=== PATIENT | female | born 1975 | race Caucasian/White ===

== ENCOUNTER 2021-05-02 10:21 | Outpatient (CLI) | payer OTHER, SELFPAY ==
--- NOTE | 2021-05-02 10:29 | MM_ITS ---
WS: [id number] BILATERAL DIGITAL SCREENING MAMMOGRAPHY WITH CAD CLINICAL INFORMATION: SCREENING HISTORY: Screening mammogram. No current complaints. COMPARISON: None. TECHNIQUE: Bilateral CC and MLO views. FINDINGS: Scattered fibroglandular densities bilaterally. Dense slightly spiculated asymmetry deep to the left areola measuring 2.2 CCM. Recommend further evaluation with left diagnostic mammography and ultrasoun d. Right breast is unremarkable. A few incidental punctate calcifications. MM/[place] [id number] IMPRESSION: BI-RADS: 0-Incomplete: Need additional imaging evaluation FOLLOW UP: Need Additional Imaging RECOMMEND LEFT BREAST DIAGNOSTIC MAMMOGRAPHY AND ULTRASOUND.
== END 2021-05-02 10:22 | disposition home or self-care (01) ==
LOC: RADSHAW 10:26
PROVIDERS: PCP Clinical Nurse Specialist Adult Health; Visit Provider Clinical Nurse Specialist Adult Health
DX: Z12.31 Encounter for screening mammogram for malignant neoplasm of breast (principal)
CPT/HCPCS: 77067

== ENCOUNTER 2021-06-21 08:46 | Outpatient (CLI) | payer OTHER, SELFPAY ==
--- NOTE | 2021-06-21 08:50 | US_ITS ---
WS: [id number] LEFT DIGITAL MAMMOGRAPHY WITH CAD CLINICAL INFORMATION: ABNORMAL MAMMOGRAM LT BREAST COMPARISON: May 02, 2021 TECHNIQUE: 3 views of the left breast were obtained. FINDINGS: Scattered fibroglandular densities of the left breast. Slightly spiculated asymmetry to the left areo la is stable in appearance and partially compresses out on the spot compression views. Ultrasound is pending. ULTRASOUND BREAST LEFT TECHNIQUE: Ultrasound left breast focused area of concern. CLINICAL INFORMATION: ABNORMAL MAMMOGRAM LT BREAST COMPARISON: None. FINDINGS: Ultrasound left breast at the areola. Underlying dense parenchymal tissue. No suspicious underlying a bnormalities. No lesions to target for biopsy. Incidental ductal ectasia right subareolar region seen in the right breast comparison. US/US breast LT limited* [id number] IMPRESSION: BI-RADS: 2-Benign FOLLOW UP: 1 Year Follow-up Recommend return to annual screening mammography.
== END 2021-06-21 08:47 | disposition home or self-care (01) ==
LOC: RADSHAW 08:48
PROVIDERS: PCP Clinical Nurse Specialist Adult Health; Visit Provider Clinical Nurse Specialist Adult Health
DX: R92.8 Other abnormal and inconclusive findings on diagnostic imaging of breast (principal)
CPT/HCPCS: 76642; 77065

== ENCOUNTER 2023-02-17 18:20 | Emergency (ER) | payer OTHER, SELFPAY ==
[2023-02-17 18:35] VITALS: BP 122/86; PULSE 90; RESP 16; TEMP 37.3; O2SAT 96; BMI 33.9
--- NOTE | 2023-02-17 18:45 | ED_ITS ---
HPI - General Adult General: Chief complaint: Dental/Oral Stated complaint: swollen lymph nodes in neck Time Seen by Provider: 02/17/23 18:38 History of Present Illness: 47-year-old female comes in today with some significant swelling to the submandibular area of the neck. Patient reports it started on the right side and now seems to be extending into the left side. Patient appears alert and nontoxic. Patient does have very poor dental health. Patient had talked to someone on the phone and they thought it might be mono when it started about 2 weeks ago but it has not improved and now has progressed. Patient reports no significant difficulty swallowing but does feel a lump in her throat. Patient is managing secretions well. Review of Systems General: Reports: 10 or more systems reviewed and unremarkable except in HPI and below Const: Denies: fever(s) Eyes: Denies: change in vision ENMT: Reports: other (Enlarged lymph nodes or glands to the neck) Physical Exam Const: COMMON NORMALS: alert HENMT: COMMON NORMALS: normocephalic, TM's normal bilaterally and Normal nasal mucous membranes and turbinates present HEAD & SCALP: normocephalic NOSE: Normal nasal mucous membranes and turbinates present TYMPANIC MEMBRANE: TM's normal bilaterally MOUTH: Normal oral and palatal mucosa present TEETH & GINGIVA: Yes poor dentition (Decayed teeth to the gumline) THROAT: posterior oropharynx normal OTHER: Putrid breath Eye: GENERAL EYE: appearance normal, both eyes and all related structures Neck/C-Spine: COMMON NORMALS: full ROM and no meningeal signs OTHER: Enlarged lymph node or salivary gland to the right neck. Lymph: LYMPHATIC: lymphadenopathy (Right and left neck greater on the right) Resp: COMMON NORMALS: normal respiratory effort and clear to auscultation bilaterally AUSCULTATION: clear to auscultation bilaterally Cardio: COMMON NORMALS: regular rate and regular rhythm RATE: regular rate RHYTHM: regular rhythm GI: COMMON NORMALS: Soft to palpation and non-tender PALPATION: Yes Soft to palpation Extremity: COMMON NORMALS: no pedal edema Neuro: SENSORIUM/ORIENTATION: Yes alert MENINGEAL SIGNS: Yes no meningeal signs Skin: COMMON NORMALS: turgor normal GENERAL SKIN EXAM: turgor normal Course Vital Signs: Vital signs: Vital Signs Temperature 99.1 F 02/17/23 18:35 Pulse Rate 90 02/17/23 18:35 Respiratory Rate 16 02/17/23 18:35 Blood Pressure 122/86 02/17/23 18:35 Pulse Oximetry 96 02/17/23 18:35 Oxygen Delivery Me thod Room Air 02/17/23 18:35 MDM - General Adult Medical Decision Making Patient comes in today due to increased swelling and lymphadenopathy to the neck. Patient reports for the last 2 weeks she has noticed some increasing sw elling in the lymph nodes of her neck had first contacted her primary care by phone and they thought that she might have mono so they did not recommend evaluation at that time. Patient comes in today due to persistent swelling and worsening without signs of dental pain or other abnormalities. Patient appears nontoxic. Patient appears in no pain. Patient does have very poor dentition with multiple dental caries and decay to the gumline. Palpation of the right submandibular lymph nodes notes an enlarged significant mass to the right area and a lesser mass to the left area. Suspect these are either salivary glands or lymphadenopathy. No swelling is noted to the sub-lingual area. Posterior pharynx is unremarkable. Differential diagnosis includes but not limited to lymphadenitis, sialoadenitis, lymphoma, abscess. CT of the soft tissues of the neck noted significant enlargement of the lymph nodes with the right being worse than the left. Patient also had multiple dental caries with erosion of the jawline suggesting some osteomyelitis. Patient also have some small striping in the tonsillar area that may suggest a peritonsillar abscess. Patient is stable and is no distress. I reviewed the patient with Dr. Roberts who agreed with plan to discharge home on clindamycin and have patient follow-up with ENT for further evaluation and treatment. Discussed this with patient who is agreeable to plan and need for follow-up. Lab Data 02/17/23 19:14 02/17/23 19:[address] 02/17/23 18:50 IMPRESSION: 1. Enlarged enhancing tiger stripe appearance of the bilateral tonsils compatible with nonsuppurative tonsillitis with concern for developing small bilateral peritonsillar abscesses. 2. Extensive bulky adenopathy in the neck bilaterally with central fluid collections within the enlarged lymph nodes concerning for infected/abscess lymph nodes with the largest adjacent to the angle right mandible. 3. There are dental caries involving essentially all of the remaining teeth in the mandible and maxilla with multiple areas of periapical lucency and bony destruction compatible with osteomyelitis in the maxilla and mandible. This extensive osteomyelitis and bony destruction is greater in the right posterior maxilla and mandible. 4. Extensive soft tissue/periosteal thickening or phlegmon is noted along the bilateral mandible and maxilla compatible with infection and reactive changes to osteomyelitis with concern for subperiosteal abscess measuring 6 x 8 x 9 mm adjacent to the posterior-most molar right mandible best seen on series 11, image 35. Laboratory Results WBC 11.5 10^3/uL (4.0-10.0) H 02/17/23 19:14 RBC 4.17 10^6/uL (4.1-5.3) 02/17/23 19:14 Hgb 13.2 g/dL (11.5-15.3) 02/17/23 19:14 Hct 39.3 % (37.0-47.0) 02/17/23 19:14 MCV 94.2 fl (81-99) 02/17/23 19:14 MCH 31.7 pg (28.0-34.0) 02/17/23 19:14 MCHC 33.6 g/dL (30.0-36.0) 02/17/23 19:14 RDW 12.6 % (12.1-15.1) 02/17/23 19:14 Plt Count 385 10^3/cmm (130-400) 02/17/23 19:14 MPV 9.1 fL (7.4-10.4) 02/17/23 19:14 Neut % (Auto) 60.8 % 02/17/23 19:14 Lymph % (Auto) 31.6 % 02/17/23 19:14 [place] % (Auto) 5.7 % 02/17/23 19:14 Eos % (Auto) 1.1 % 02/17/23 19:14 Baso % (Auto) 0.5 % 02/17/23 19:14 Neut # (Auto) 6.98 10^3/uL (1.8-7.7) 02/17/23 19:14 Lymph # (Auto) 3.6 10^3/uL (0.8-4.8) 02/17/23 19:14 [place] # (Auto) 0.7 10^3/uL (0.2-0.9) 02/17/23 19:14 Eos # (Auto) 0.1 10^3/uL (0.0-0.8) 02/17/23 19:14 Baso # (Auto) 0.1 10^3/uL (0.0-0.1) 02/17/23 19:14 Nucleated RBC % (auto) 0 % 02/17/23 19:14 Nucleated RBCs # 0.0 /100WBC 02/17/23 19:14 Sodium 140 mmol/L (136-145) 02/17/23 19:14 Potassium 3.4 mmol/L (3.5-5.1) L 02/17/23 19:14 Chloride 100 mmol/L (98-107) 02/17/23 19:14 Carbon Dioxide 29 mmol/L (22-29) 02/17/23 19:14 Anion Gap 14.4 (5-19) 02/17/23 19:14 BUN 8 mg/dL (6-20) 02/17/23 19:14 Creatinine 0.6 mg/dL (0.5-0.9) 02/17/23 19:14 GFR Calculation 108.1 mL/min (90-130) 02/17/23 19:14 Glucose 101 mg/dL (65-115) 02/17/23 19:14 Calculated Osmolality 288 mOsm/kg (285-295) 02/17/23 19:14 Calcium 9.0 mg/dL (8.5-10.5) 02/17/23 19:14 Total Bilirubin 0.4 mg/dL (0.15-1.2) 02/17/23 19:14 AST 29 U/L (0-32) 02/17/23 19:14 ALT 38 U/L (0-33) H 02/17/23 19:14 Alkaline Phosphatase 232 U/L (35-105) H 02/17/23 19:14 Total Protein 7.7 g/dL (6.6-8.7) 02/17/23 19:14 Albumin 3.5 g/dL (3.5-5.2) 02/17/23 19:14 Globulin 4.2 g/dL (1.3-4.6) 02/17/23 19:14 HCG, Qual Negative (Negative) 02/17/23 19:14 Group A Strep Rapid Negative (Negative) 02/17/23 18:50 Discharge Plan Discharge Patient Disposition: Home Clinical Impression: Dental caries, Osteomyelitis of jaw Condition: Stable Prescriptions: New clindamycin HCl 300 mg capsule 600 mg PO TID 7 Days Qty: 42 0RF Discharge Orders: Discharge ED (Routine); Ordered 02/17/23 Ordered By: Yosvany Urban Discharge Diet: Usual diet Discharge Activity: Increase activity as tolerated Patient Instructions: Dental Abscess (ED) Activity Restrictions/Additional Instructions: Take antibiotic as directed. Good oral care. Follow-up with research instructor for further evaluation and treatment. Return to ER for difficulty swallowing, inability to maintain secretions, high fever greater than 100.4, shortness of breath. Coding Level of Care Code ED [employer] Trainer for Dwain Rosales
--- NOTE | 2023-02-17 18:50 | CTR_ITS ---
PROCEDURE INFORMATION: Exam: CT Neck With Contrast Exam date and time: 02/17/2023 7:21 PM Age: 47 years old Clinical indication: Dysphagia / difficulty swallowing and mass, lump, or swelling in neck; Right; Patient HX: RT submandibular swelling with dysphagia and fever. ; Additional info: Mass in neck right side TECHNIQUE: Imaging protocol: Computed tomography of the neck with contrast. Radiation optimization: All CT scans at this facility use at least one of these dose optimization techniques: automated exposure control; mA and/or kV adjustment per patient size (includes targeted exams where dose is matched to clinical indication); or iterative reconstruction. Contrast material: OMNI 350; Contrast volume: 100 ml; Contrast route: INTRAVENOUS (IV); REPORTING DATA: Count of CT and Cardiac NM exams in prior 12 months: This patient has received 0 known CTs and 0 known cardiac nuclear medicine studies in the 12 months prior to the current study. COMPARISON: No relevant prior studies available. RADIATION DOSE METRICS: Total DLP (mGy-cm): 271.82 FINDINGS: Paranasal sinuses: There is a mucous retention cyst right maxillary sinus. Dental: There are dental caries involving essentially all of the remaining teeth in the mandible and maxilla with multiple areas of periapical lucency and bony destruction of osteomyelitis in the maxilla and mandible. Pharynx: Bilateral tonsils are enlarged and have a striated/tiger stripe appearance that is compatible with nonsuppurative tonsillitis. However, is marked thick enhancement surrounding multiple well-defined hypodense small fluid collections within the bilateral tonsils concerning for developing peritonsillar abscess is bilaterally measuring 4 x 8 mm. This is best seen on the left series 11, image 51 and on the right series 11, image 49. Larynx: Unremarkable. Epiglottis is normal. Prevertebral and retropharyngeal spaces: Unremarkable. Salivary glands: Normal. Glands are normal in size. Thyroid: Normal. No enlarged or calcified nodules. Lymph nodes: There is extensive bilateral adenopathy in the neck. Multiple enlarged lymph nodes have central hypodensity concerning for infected/abscess lymph nodes including the largest in the right submandibular region measuring 2.7 x 2.6 x 3.5 cm. Additional abscess type lymph nodes are noted bilaterally in the neck as seen on series 6, image 47 through 61. Trachea: Visualized trachea is unremarkable. Lungs: Unremarkable as visualized. Bones/joints: No definite abscess adjacent to the left mandible or maxilla. Vasculature: There is good vascular enhancement in the neck bilaterally without occlusion or thrombosis. Soft tissues: Extensive soft tissue/periosteal thickening is noted along the bilateral mandible and maxilla compatible with infection with concern for subperiosteal abscess measuring 6 x 8 x 9 mm adjacent to the posterior-most molar right mandible best seen on series 11, image 35. CT/CT neck w con* [id number] IMPRESSION: 1. Enlarged enhancing tiger stripe appearance of the bilateral tonsils compatible with nonsuppurative tonsillitis with concern for developing small bilateral peritonsillar abscesses. 2. Extensive bulky adenopathy in the neck bilaterally with central fluid collections within the enlarged lymph nodes concerning for infected/abscess lymph nodes with the largest adjacent to the angle right mandible. 3. There are dental caries involving essentially all of the remaining teeth in the mandible and maxilla with multiple areas of periapical lucency and bony destruction compatible with osteomyelitis in the maxilla and mandible. This extensive osteomyelitis and bony destruction is greater in the right posterior maxilla and mandible. 4. Extensive soft tissue/periosteal thickening or phlegmon is noted along the bilateral mandible and maxilla compatible with infection and reactive changes to osteomyelitis with concern for subperiosteal abscess measuring 6 x 8 x 9 mm adjacent to the posterior-most molar right mandible best seen on series 11, image 35.
[2023-02-17 19:20] LABS: Rapid Strep A Test Negative (Negative)
[2023-02-17] MEDS: iohexol 350 mg/mL 500 mL Btl (per mL) IV (19:32)
[2023-02-17 19:37] LABS: Alanine Aminotransferase 38 U/L (0-33); Albumin Level 3.5 g/dL (3.5-5.2); Alkaline Phosphatase 232 U/L (35-105); Anion Gap 14.4 (5-19); Aspartate Amino Transferase 29 U/L (0-32); Blood Urea Nitrogen 8 mg/dL (6-20); Carbon Dioxide 29 mmol/L (22-29); Chloride 100 mmol/L (98-107); Globulin 4.2 g/dL (1.3-4.6); Glomerular Filtration Rate 108.1 mL/min (90-130); Glucose 101 mg/dL (65-115); HCG, Serum Qual Negative (Negative); Osmolality Calculated 288 mOsm/kg (285-295); Potassium 3.4 mmol/L (3.5-5.1); Sodium 140 mmol/L (136-145); Total Bilirubin 0.4 mg/dL (0.15-1.2); Total Protein 7.7 g/dL (6.6-8.7)
[2023-02-17 19:38] LABS: Basophils # 0.1 10^3/uL (0.0-0.1); Basophils % 0.5 %; Eosinophils # 0.1 10^3/uL (0.0-0.8); Eosinophils % 1.1 %; Hematocrit 39.3 % (37.0-47.0); Hemoglobin 13.2 g/dL (11.5-15.3); Lymphocytes # 3.6 10^3/uL (0.8-4.8); Lymphocytes % 31.6 %; Mean Corpuscular HGB Conc 33.6 g/dL (30.0-36.0); Mean Corpuscular Hemoglobin 31.7 pg (28.0-34.0); Mean Corpuscular Volume 94.2 fl (81-99); Mean Platelet Volume 9.1 fL (7.4-10.4); Monocytes # 0.7 10^3/uL (0.2-0.9); Monocytes % 5.7 %; Neutrophils # 6.98 10^3/uL (1.8-7.7); Neutrophils % 60.8 %; Nucleated Red Blood Cells % 0 %; Platelet Count 385 10^3/cmm (130-400); Red Blood Count 4.17 10^6/uL (4.1-5.3); Red Cell Distribution Width 12.6 % (12.1-15.1); White Blood Count 11.5 10^3/uL (4.0-10.0)
[2023-02-17] MEDS: clindamycin 900 MG/50 ML PREMIX 100 MG IV (20:35)
[2023-02-17 20:48] VITALS: BP 110/74; TEMP 37.2; O2SAT 97
--- NOTE | 2023-02-18 10:13 | PC.SOCIAL ---
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 warehouse manager unable to speak with patient at this time. Original Note: ENT Referral Referral to ENT at this time. Clinic to contact patient with appt date/time.
== END 2023-02-17 21:24 | disposition home or self-care (01) ==
PROVIDERS: Emergency Provider Nurse Practitioner Family
DX: K02.9 Dental caries, unspecified (principal); M27.2 Inflammatory conditions of jaws
CPT/HCPCS: 70491; 80053; 84703; 85025; 87081; 87880; 96374; 99285; J3490; Q9967

== ENCOUNTER 2023-06-30 10:42 | Emergency (ER) | payer OTHER, SELFPAY ==
[2023-06-30] VITALS (38 sets, daily range): BP systolic 135–156; BP diastolic 75–92; PULSE 44–67; RESP 7–17; TEMP 37.3; O2SAT 90–99; BMI 30.7
--- NOTE | 2023-06-30 10:53 | CTR_ITS ---
PROCEDURE INFORMATION: Exam: CT Abdomen And Pelvis With Contrast Exam date and time: 06/30/2023 12:03 PM Age: 47 years old Clinical indication: Abdominal pain; Epigastric; Additional info: Abd pain TECHNIQUE: Imaging protocol: Computed tomography of the abdomen and pelvis with contrast. Axial, coronal and sagittal reformatted images were created and reviewed. Radiation optimization: All CT scans at this facility use at least one of these dose optimization techniques: automated exposure control; mA and/or kV adjustment per patient size (includes targeted exams where dose is matched to clinical indication); or iterative reconstruction. Contrast material: OMNI 350; Contrast volume: 100 ml; Contrast route: INTRAVENOUS (IV); REPORTING DATA: Count of CT and Cardiac NM exams in prior 12 months: This patient has received [address] and 0 known cardiac nuclear medicine studies in the 12 months prior to the current study. COMPARISON: No relevant prior studies available. RADIATION DOSE METRICS: Total DLP (mGy-cm): 803.64 FINDINGS: Liver: Mild hepatic steatosis. Gallbladder and bile ducts: Mild gallbladder distention with associated gallbladder wall thickening. No radiodense gallstones. Pancreas: Unremarkable. Spleen: Coarse calcified splenic granuloma. Adrenal glands: Normal. No mass. Kidneys and ureters: No mass. No radiodense calculi. No hydronephrosis. Stomach and bowel: No bowel wall thickening. No obstruction. No pneumatosis. Appendix: Normal. Intraperitoneal space: No free fluid. No organized fluid collection. No free air. Vasculature: Unremarkable. No aneurysm. Lymph nodes: No pathologically enlarged lymph nodes. Urinary bladder: Unremarkable as visualized. Reproductive: 3.3 x 3.3 cm right adnexal cystic lesion, likely a follicular cyst. Bones/joints: No acute osseous abnormality. Mild degenerative changes. Soft tissues: Small, fat containing umbilical hernia. CT/CT abdomen pelvis w con* [id number] IMPRESSION: 1. Mild gallbladder distention with associated gallbladder wall thickening. No radiodense gallstones. If clinically indicated, ultrasound or HIDA scan would provide a more sensitive evaluation for acute gallbladder pathology. 2. Additional findings, as above.
--- NOTE | 2023-06-30 10:56 | W.ED.ABDPA2 ---
HPI - Abdominal Pain General: Chief Complaint: Abdominal Pain Stated Complaint: abd pain Time Seen by Provider: 06/30/23 10:53 History of Present Illness: 47-year-old female presents emergency room with right upper quadrant epigastric and left upper quadrant pain for the past 4 days. She reveals increased pain after eating and described pain as sharp sensation with severity of 7 out of 10. She revealed some nausea and vomiting but [place] any diarrhea, bloody stool or dark stool. No fever, chills, dysuria, hematuria or urine frequency. Associated Symptoms: Reports nausea and vomiting; Denies coffee ground emesis, diarrhea, heartburn and hematemesis Review of Systems General: Reports: 10 or more systems reviewed and unremarkable except in HPI and below GI: Reports: abdominal pain, nausea and vomiting; Denies: hematemesis, coffee ground emesis, dysphagia, heartburn, early satiety or diarrhea Physical Exam Const: COMMON NORMALS: no acute distress Chest: COMMONS NORMALS: normal inspection of the chest, normal palpation of entire chest wall, normal inspection of the breasts and normal palpation of the breasts Breast/axilla inspection: Yes normal inspection of the breasts BREAST/AXILLA PALPATION: Yes normal palpation of the breasts Resp: COMMON NORMALS: normal respiratory effort, No retractions, No use of accessory muscles, clear to auscultation bilaterally and percussion normal AUSCULTATION: clear to auscultation bilaterally PERCUSSION: percussion normal GI: COMMON NORMALS: Soft to palpation; negative for No hepatosplenomegaly present INSPECTION: Yes normal to inspection AUSCULTATION: Yes normoactive bowel sounds PALPATION: Yes Soft to palpation, Yes Tenderness to palpation present (GI) Details: LUQ, RUQ and other (epigastric ), No Rigid due to palpation, No No hepatosplenomegaly present, No Splenomegaly present, No Hernia present, No Palpable mass present, No Pulsatile mass present and No Ascites present PERCUSSION: normal to percussion : EXTERNAL FEMALE EXAM: No Hernia present Extremity: COMMON NORMALS: normal to inspection, full ROM, capillary refill normal, no joint enlargement, no clubbing, cyanosis or edema, no calf tenderness and no pedal edema Skin: COMMON NORMALS: no rashes or lesions noted, no wounds, turgor normal, no jaundice, no petechiae and no mottling GENERAL SKIN EXAM: no rashes or lesions noted and turgor normal Course Consultations: Consultation #1: Consulted Dr. Stiles and the general surgeon on-call. He recommended getting ultrasound. Consultation #2: I reviewed the ultrasound report and discussed ultrasound Pap with Dr. Stiles. Recommended outpatient follow-up. Also recommended Augmentin twice daily for 10 days. Vital Signs: Vital signs: Vital Signs Temperature 99.2 F 06/30/23 10:46 Pulse Rate 57 L 06/30/23 11:48 Respiratory Rate 10 L 06/30/23 11:48 Blood Pressure 156/88 06/30/23 11:48 Pulse Oximetry 96 06/30/23 11:48 Oxygen Delivery Me thod Room Air 06/30/23 10:46 MDM - Abdominal Pain Medical Decision Making Patient made comfortable emergency room. Patient extensive work-up to include CBC, CMP, lipase and a UA. Patient had CT scan and ultrasound done. She will be discharged home with pain medication and antibiotics. Patient was given referral to see general surgery in 2 to 3 days. Differential Diagnosis Likely abdominal pain, acute appendicitis, calculus of kidney, constipation, diverticulitis, endometriosis, gastroenteritis, pancreatitis and small bowel obstruction Lab Data 06/30/23 11:10 06/30/23 11:10 Labs/Radiology: Radiology Impressions Abdomen/Pelvis CT 06/30/23 10:53 IMPRESSION: 1. Mild gallbladder distention with associated gallbladder wall thickening. No radiodense gallstones. If clinically indicated, ultrasound or HIDA scan would provide a more sensitive evaluation for acute gallbladder pathology. 2. Additional findings, as above. Laboratory Results WBC 8.68 10^3/uL (3.29-11.43) 06/30/23 11:10 RBC 4.22 10^6/uL (3.85-5.65) 06/30/23 11:10 Hgb 13.30 g/dL (11.27-16.99) 06/30/23 11:10 Hct 41.2 % (36-47) 06/30/23 11:10 MCV 97.6 fl (85-98) 06/30/23 11:10 MCH 31.5 pg (27-33) 06/30/23 11:10 MCHC 32.3 g/dL (30-55) 06/30/23 11:10 RDW 12.3 % (12.1-15.1) 06/30/23 11:10 Plt Count 272 10^3/cmm (157-399) 06/30/23 11:10 MPV 9.9 fL (7.4-10.4) 06/30/23 11:10 Neut % (Auto) 47.6 % 06/30/23 11:10 Lymph % (Auto) 42.7 % 06/30/23 11:10 [place] % (Auto) 6.5 % 06/30/23 11:10 Eos % (Auto) 2.5 % 06/30/23 11:10 Baso % (Auto) 0.5 % 06/30/23 11:10 Neut # (Auto) 4.13 10^3/uL (1.8-7.7) 06/30/23 11:10 Lymph # (Auto) 3.7 10^3/uL (0.8-4.8) 06/30/23 11:10 [place] # (Auto) 0.6 10^3/uL (0.2-0.9) 06/30/23 11:10 Eos # (Auto) 0.2 10^3/uL (0.0-0.8) 06/30/23 11:10 Baso # (Auto) 0.0 10^3/uL (0.0-0.1) 06/30/23 11:10 Nucleated RBC % (auto) 0 % 06/30/23 11:10 Nucleated RBCs # 0.0 /100WBC 06/30/23 11:10 Sodium 137 mmol/L (136-145) 06/30/23 11:10 Potassium 3.4 mmol/L (3.5-5.1) L 06/30/23 11:10 Chloride 99 mmol/L (98-107) 06/30/23 11:10 Carbon Dioxide 26 mmol/L (22-29) 06/30/23 11:10 Anion Gap 15.4 (5-19) 06/30/23 11:10 BUN 9 mg/dL (6-20) 06/30/23 11:10 Creatinine 0.6 mg/dL (0.5-0.9) 06/30/23 11:10 GFR Calculation 108.1 mL/min (90-130) 06/30/23 11:10 Glucose 98 mg/dL (65-115) 06/30/23 11:10 Calculated Osmolality 283 mOsm/kg (285-295) L 06/30/23 11:10 Calcium 9.3 mg/dL (8.5-10.5) 06/30/23 11:10 Total Bilirubin 0.4 mg/dL (0.15-1.2) 06/30/23 11:10 AST 23 U/L (0-32) 06/30/23 11:10 ALT 23 U/L (0-33) 06/30/23 11:10 Alkaline Phosphatase 101 U/L (35-105) 06/30/23 11:10 Total Protein 7.7 g/dL (6.6-8.7) 06/30/23 11:10 Albumin 4.0 g/dL (3.5-5.2) 06/30/23 11:10 Globulin 3.7 g/dL (1.3-4.6) 06/30/23 11:10 Lipase 32 U/L (13-60) 06/30/23 11:10 HCG, Qual Negative (Negative) 06/30/23 11:07 Urine Color Yellow (Yellow) 06/30/23 11:07 Urine Appearance Clear (CLEAR) 06/30/23 11:07 Urine pH 6 (5-7) 06/30/23 11:07 Ur Specific [place] 1.015 (1.005-1.030) 06/30/23 11:07 Urine Protein Neg (Negative) 06/30/23 11:07 Urine Glucose (UA) Norm (Normal) 06/30/23 11:07 Urine Ketones Negative (Negative) 06/30/23 11:07 Urine Blood Neg (Negative) 06/30/23 11:07 Urine Nitrate Negative (Negative) 06/30/23 11:07 Urine Bilirubin Neg (Negative) 06/30/23 11:07 Urine Urobilinogen Norm mg/dL (Negative) 06/30/23 11:07 Ur Leukocyte Esterase Negative (Negative) 06/30/23 11:07 XR interpretation done by ED provider, pending radiology final review Discharge Plan Discharge Patient Disposition: Home Clinical Impression: Abdominal pain, Cholecystitis Condition: Stable Prescriptions: New Percocet 5-325 mg tablet 1 tab PO Q8H PRN (Reason: pain) Qty: 10 0RF amoxicillin-pot clavulanate 875-125 mg tablet 1 tab PO Q12H Qty: 10 0RF Discharge Orders: Discharge ED (Routine); Ordered 06/30/23 Ordered By: Mavis Weiner Referrals: Galo Ortez DO [Physician] - 1-3 days Discharge Diet: Low Cholesterol and Low Fat Discharge Activity: Resume usual activity Patient Instructions: Cholecystitis (ED), Abdominal Pain (ED), Opioid Safety, Pain Management Coding Level of Care Code ED Corporate Safety Director for Dwain Rosales
[2023-06-30 11:24] LABS: Basophils % 0.5 %; Eosinophils # 0.2 10^3/uL (0.0-0.8); Eosinophils % 2.5 %; Hematocrit 41.2 % (36-47); Lymphocytes # 3.7 10^3/uL (0.8-4.8); Lymphocytes % 42.7 %; Mean Corpuscular HGB Conc 32.3 g/dL (30-55); Mean Corpuscular Hemoglobin 31.5 pg (27-33); Mean Corpuscular Volume 97.6 fl (85-98); Mean Platelet Volume 9.9 fL (7.4-10.4); Monocytes # 0.6 10^3/uL (0.2-0.9); Monocytes % 6.5 %; Neutrophils # 4.13 10^3/uL (1.8-7.7); Neutrophils % 47.6 %; Nucleated Red Blood Cells % 0 %; Platelet Count 272 10^3/cmm (157-399); Red Blood Count 4.22 10^6/uL (3.85-5.65); Red Cell Distribution Width 12.3 % (12.1-15.1); White Blood Count 8.68 10^3/uL (3.29-11.43)
[2023-06-30 11:26] LABS: Add Urine Microscopic? NO; Charge for UA Resulting for Rev
[2023-06-30 11:28] LABS: Bilirubin Urine Neg (Negative); Blood Urine Neg (Negative); Glucose Urine UA Norm (Normal); Ketones Urine Negative (Negative); Leukocyte Esterase Urine Negative (Negative); Nitrate Urine Negative (Negative); Protein Urine Neg (Negative); Specific Gravity, Urine 1.015 (1.005-1.030); Urine Appearance Clear (CLEAR); Urine Color Yellow (Yellow); Urobilinogen Urine Norm (Negative); pH Urine 6 (5-7)
[2023-06-30 11:29] LABS: HCG Qualitative Urine. Negative (Negative)
[2023-06-30 11:33] LABS: Alanine Aminotransferase 23 U/L (0-33); Alkaline Phosphatase 101 U/L (35-105); Anion Gap 15.4 (5-19); Aspartate Amino Transferase 23 U/L (0-32); Blood Urea Nitrogen 9 mg/dL (6-20); Calcium 9.3 mg/dL (8.5-10.5); Carbon Dioxide 26 mmol/L (22-29); Chloride 99 mmol/L (98-107); Globulin 3.7 g/dL (1.3-4.6); Glomerular Filtration Rate 108.1 mL/min (90-130); Glucose 98 mg/dL (65-115); Lipase 32 U/L (13-60); Osmolality Calculated 283 mOsm/kg (285-295); Potassium 3.4 mmol/L (3.5-5.1); Sodium 137 mmol/L (136-145); Total Bilirubin 0.4 mg/dL (0.15-1.2); Total Protein 7.7 g/dL (6.6-8.7)
[2023-06-30] MEDS: pantoprazole 40 mg SDV IVP (11:37)
[2023-06-30] MEDS: metoclopramide 5 mg/mL SDV 2 mL 10 MG IVP (11:38)
[2023-06-30] MEDS: HYDROmorphone 1 mg/mL INJ 1 mL 0.5 MG IVP (11:41)
[2023-06-30] MEDS: iohexol 350 mg/mL 500 mL Btl (per mL) IV (12:11)
--- NOTE | 2023-06-30 12:45 | USR_ITS ---
PROCEDURE INFORMATION: Exam: US Abdomen, Limited; Right Upper Quadrant Exam date and time: 06/30/2023 1:46 PM Age: 47 years old Clinical indication: Abdominal pain; Epigastric; Additional info: Pain and abnormal gallbladder TECHNIQUE: Imaging protocol: Real time ultrasound of the abdomen with image documentation. Limited exam focused on the right upper quadrant. COMPARISON: CT abdomen pelvis w con* [id number] 06/30/2023 12:03 PM FINDINGS: Liver: Unremarkable. Gallbladder: Mild nonspecific gallbladder wall thickening. No gallstones. No pericholecystic fluid. 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 Biliary ducts: Normal. No stones. No dilation. Pancreas: Unremarkable as visualized. Right kidney: No mass. No definite stones. No hydronephrosis. US/US gall bladder [id number] IMPRESSION: Mild nonspecific gallbladder wall thickening without gallstones. If clinically indicated, HIDA scan would provide a more sensitive evaluation for acute gallbladder pathology.
== END 2023-06-30 14:38 | disposition home or self-care (01) ==
PROVIDERS: Emergency Provider Family Medicine
DX: K81.9 Cholecystitis, unspecified (principal)
CPT/HCPCS: 36415; 74177; 76705; 80053; 81003; 81025; 83690; 85025; 96374; 96375; 99285; C9113; J1170; J2765; Q9967

== ENCOUNTER → 2023-07-02 13:57 | Outpatient (BNVA) | payer OTHER, SELFPAY | PROVIDERS: Visit Provider Surgery | DX: R10.13 Epigastric pain (principal) | CPT/HCPCS: 99204 ==

== ENCOUNTER 2023-07-05 07:38 | Outpatient (CLI) | payer OTHER, SELFPAY ==
--- NOTE | 2023-07-05 08:00 | NM_ITS ---
WS: [id number] NUCLEAR MEDICINE HIDA SCAN CLINICAL INFORMATION: epigastric pain TECHNIQUE: Following intravenous administration of 7.4 mCi of technetium 99m mebrofenin, images of th e abdomen were obtained over the course of 60 minutes. Next, gallbladder ejection fraction was determ ined by obtaining preprandial and one-hour postprandial images of the gallbladder following oral luca stion of Ensure. COMPARISON: Ultrasound 06/30/2023 FINDINGS: Hepatomegaly. Normal hepatic uptake. Normal hepatic excretion. Gallbladder visualized by 90 minutes. No evidence of acute cholecystitis. Normal common bile duct and small bowel activity. No gallbladder emptying at 66 minutes on the ejection fraction imaging. IMPRESSION: 1. No evidence of acute cholecystitis. 2. No gallbladder emptying on the ejection fraction imaging. Findings can be seen with chronic acalc ulous cholecystitis or chronic gallbladder dysfunction. 3. Hepatomegaly.
== END 2023-07-05 07:39 | disposition home or self-care (01) ==
LOC: RAD 07:39
PROVIDERS: PCP Surgery; Visit Provider Surgery
DX: R10.13 Epigastric pain (principal); R16.0 Hepatomegaly, not elsewhere classified
CPT/HCPCS: 78227; A9537

== ENCOUNTER 2023-07-12 20:48 | Inpatient (IN) | payer OTHER, SELFPAY ==
[2023-07-12 20:52] VITALS: BP 154/92; PULSE 61; RESP 18; TEMP 36.4; O2SAT 100; BMI 28.6
--- NOTE | 2023-07-12 21:25 | ED_ITS ---
HPI - Abdominal Pain General: Chief Complaint: Abdominal Pain Stated Complaint: abd pain Time Seen by Provider: 07/12/23 21:25 History of Present Illness: 47-year-old female presents to the emergency department with complaints of right upper quadrant pain. She states she has been seen several times by her primary care provider and also recently by Dr. Ortez she states she is received a HIDA scan as well as an ultrasound and a CT scan and was told by Dr. Ortez's nurse that if her pain worsens to come to the emergency department. Patient now states that her pain is a 9 out of 10 and has been for the previous 12 hours. She states she is unable to do this any longer and is demanding to have Dr. Ortez called. I advised her that we will obtain laboratory evaluation and that I would call Dr. Ortez to let him know that she is here in the emergency department. Associated Symptoms: Reports nausea Review of Systems General: Reports: 10 or more systems reviewed and unremarkable except in HPI and below GI: Reports: abdominal pain and nausea Physical Exam Narrative: EXAM NARRATIVE: Constitutional: the patient appears well nourished and with normal development. Vital signs reviewed as documented. Appears in moderate distress. HENMT: Normocephalic, atraumatic. Extermal ears with normal appearance without drainage. Nose without drainage, normal appearance. Mucus membranes moist. Neck is supple, No jugular venous distension, trachea is midline, no appreciable carotid bruits. No lymphadenopathy. No meningeal signs. Flexion, extension and lateral rotation is without pain. Eyes: Pupils are equal, round, reactive to light and accommodation. No scleral icterus. Extra-ocular movement are intact. Thorax is symmetrical and with equal rise and fall with respirations. Resp: Lungs are clear to auscultation. No wheezes, rales, crackles or ronchi at present. Cardio: Regular rate and rhythm. Positive S1, S2. No appreciable murmurs, rubs or gallops. GI: Abdominal exam reveals normal bowel sounds to all quadrants. No organomegaly. No obvious palpable masses noted. No hepatomegally appreciated. Soft, Tender to palpation To the right upper quadrant. Extremity: Extremities are non-edematous and both femoral and pedal pulses are 2+ and equal bilaterally. Moves all extremities well, sensation in all extremities. Neuro: Alert and oriented x4, person, place, time and situation. Cranial nerves II through XII are grossly intact, there is no focal neurological deficits that I can appreciate at present. Motor strength in the upper and lower extremities are equal and bilateral 5/5. Psych: Cooperative, calm, normal thought process, appropriate judgment. Skin: No lesions, rashes. No gross abnormalities noted. Back: Symmetrical, no obvious deformity, No CVA tenderness Course Vital Signs: Vital signs: Vital Signs Temperature 97.6 F 07/12/23 20:52 Pulse Rate 61 07/12/23 20:52 Respiratory Rate 18 07/12/23 20:52 Blood Pressure 154/92 07/12/23 20:52 Pulse Oximetry 100 07/12/23 20:52 Oxygen Delivery Me thod Room Air 07/12/23 20:52 MDM - Abdominal Pain Medical Decision Making Physical exam completed and documented, I will obtain laboratory evaluation to include a CBC, CMP, lipase, urinalysis, and Ultrasound of the patient's abdomen pelvis to evaluate for possible differential diagnosis of bowel obstruction, incarcerated hernia, abdominal wall strain, abdominal wall hematoma, constipation. I will provide the patient IV access and IV fluid as well as Pain medication and nausea medication.I reviewed the patient's previous HIDA scan from 06/30/[address] Ortez at the patient's request to advise him of the situation here in the emergency department with this patient. Medical Records I reviewed the patient's medical records. Lab Data 07/12/23 22:46 07/12/23 22:46 Labs/Radiology: Radiology Impressions Gallbladder Ultrasound 07/12/23 21:42 IMPRESSION: 1. No acute findings. 2. Mildly increased echogenicity of the liver, most likely fatty infiltration. Laboratory Results WBC 4.50 10^3/uL (3.29-11.43) 07/12/23 22:46 RBC 4.50 10^6/uL (3.85-5.65) 07/12/23 22:46 Hgb 14.20 g/dL (11.27-16.99) 07/12/23 22:46 Hct 42.5 % (36-47) 07/12/23 22:46 MCV 94.4 fl (85-98) 07/12/23 22:46 MCH 31.6 pg (27-33) 07/12/23 22:46 MCHC 33.4 g/dL (30-55) 07/12/23 22:46 RDW 12.1 % (12.1-15.1) 07/12/23 22:46 Plt Count 281 10^3/cmm (157-399) 07/12/23 22:46 MPV 9.7 fL (7.4-10.4) 07/12/23 22:46 Neut % (Auto) 82.8 % 07/12/23 22:46 Lymph % (Auto) 14.4 % 07/12/23 22:46 Arroyo % (Auto) 0.2 % 07/12/23 22:46 Eos % (Auto) 2.2 % 07/12/23 22:46 Baso % (Auto) 0.4 % 07/12/23 22:46 Neut # (Auto) 3.72 10^3/uL (1.8-7.7) 07/12/23 22:46 Lymph # (Auto) 0.7 10^3/uL (0.8-4.8) L 07/12/23 22:46 Arroyo # (Auto) 0.0 10^3/uL (0.2-0.9) L 07/12/23 22:46 Eos # (Auto) 0.1 10^3/uL (0.0-0.8) 07/12/23 22:46 Baso # (Auto) 0.0 10^3/uL (0.0-0.1) 07/12/23 22:46 Nucleated RBC % (auto) 0 % 07/12/23 22:46 Nucleated RBCs # 0.0 /100WBC 07/12/23 22:46 All radiology interpretation(s) finalized by discharge Discharge Plan Discharge Clinical Impression: Abdominal pain Condition: Stable Prescriptions: No Action pantoprazole [Protonix] 40 mg tablet,delayed release (DR/EC) 40 mg PO BID 42 Days Qty: 84 1RF Percocet 5-325 mg tablet 1 tab PO Q8H PRN (Reason: pain) Qty: 10 0RF amoxicillin-pot clavulanate 875-125 mg tablet 1 tab PO Q12H Qty: 10 0RF Referrals: Galo Ortez DO [Primary Care Provider] - Patient Instructions: Abdominal Pain (ED) Coding Level of Care Code ED 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
--- NOTE | 2023-07-12 21:42 | USR_ITS ---
PROCEDURE INFORMATION: Exam: US Abdomen, Limited; Right Upper Quadrant Exam date and time: 07/12/2023 10:00 PM Age: 47 years old Clinical indication: Abdominal pain; Epigastric; Additional info: Ruq abd pain TECHNIQUE: Imaging protocol: Real time ultrasound of the abdomen with image documentation. Limited exam focused on the right upper quadrant. COMPARISON: US gall bladder [id number] 06/30/2023 1:46 PM FINDINGS: Liver: The liver is mildly hyperechoic measuring 15.6 cm. Gallbladder: Prominent fluid-filled gallbladder measuring 13.0 cm in length. No gallbladder wall thickening. No gallstones. Biliary ducts: Normal. No stones. No dilation. Pancreas: Visualized pancreas is unremarkable. Right kidney: Normal. No mass. No hydronephrosis. Intraperitoneal space: No ascites. US/US gall bladder [id number] IMPRESSION: 1. No acute findings. 2. Mildly increased echogenicity of the liver, most likely fatty infiltration.
[2023-07-12] MEDS: ondansetron 2 mg/ML SDV 2 mL 4 MG IVP ×2 (22:47→23:47)
[2023-07-12 22:50] LABS: Basophils % 0.4 %; Eosinophils # 0.1 10^3/uL (0.0-0.8); Eosinophils % 2.2 %; Hematocrit 42.5 % (36-47); Lymphocytes # 0.7 10^3/uL (0.8-4.8); Lymphocytes % 14.4 %; Mean Corpuscular HGB Conc 33.4 g/dL (30-55); Mean Corpuscular Hemoglobin 31.6 pg (27-33); Mean Corpuscular Volume 94.4 fl (85-98); Mean Platelet Volume 9.7 fL (7.4-10.4); Monocytes % 0.2 %; Neutrophils # 3.72 10^3/uL (1.8-7.7); Neutrophils % 82.8 %; Nucleated Red Blood Cells % 0 %; Platelet Count 281 10^3/cmm (157-399); Red Cell Distribution Width 12.1 % (12.1-15.1)
[2023-07-12 22:58] VITALS: BP 125/53; PULSE 76; RESP 14; O2SAT 98
[2023-07-12 23:06] LABS: HCG, Serum Qual Negative (Negative)
[2023-07-12 23:11] VITALS: RESP 18; O2SAT 100
[2023-07-12 23:11] LABS: Albumin Level 4.3 g/dL (3.5-5.2); Alkaline Phosphatase 672 U/L (35-105); Anion Gap 16.3 (5-19); Aspartate Amino Transferase 668 U/L (0-32); Blood Urea Nitrogen 9 mg/dL (6-20); Calcium 9.6 mg/dL (8.5-10.5); Carbon Dioxide 25 mmol/L (22-29); Chloride 99 mmol/L (98-107); Globulin 3.8 g/dL (1.3-4.6); Glomerular Filtration Rate 90.5 mL/min (90-130); Glucose 116 mg/dL (65-115); Lipase 44 U/L (13-60); Osmolality Calculated 284 mOsm/kg (285-295); Potassium 3.3 mmol/L (3.5-5.1); Sodium 137 mmol/L (136-145); Total Bilirubin 2.7 mg/dL (0.15-1.2); Total Protein 8.1 g/dL (6.6-8.7)
[2023-07-12] MEDS: morphine 4 mg/mL SDV 1 mL IVP (23:11)
[2023-07-12 23:23] LABS: Alanine Aminotransferase 764 U/L (0-33)
[2023-07-12 23:40] LABS: Add Urine Microscopic? YES; Bilirubin Urine 2+ (Negative); Blood Urine Neg (Negative); Glucose Urine UA Norm (Normal); Ketones Urine 1+ (Negative); Leukocyte Esterase Urine Trace (Negative); Nitrate Urine Negative (Negative); Protein Urine 1+ (Negative); Urine Appearance Clear (CLEAR); Urine Color Amber (Yellow); Urobilinogen Urine 8 mg/dL (Negative); pH Urine 6 (5-7)
[2023-07-12 23:41] LABS: Add Urine Culture? No; Amorphous Sediment Urine 1+ /hpf; Mucus Urine 4+ /hpf; WBC Urine 0-4 /hpf (0-5)
[2023-07-12 23:44] VITALS: BP 96/49; PULSE 74; RESP 16; O2SAT 99
[2023-07-12] MEDS: sodium chloride 0.9% 1,000 ML 999 ML IV (23:46)
--- NOTE | 2023-07-12 23:52 | P.HP_ITS ---
Providers/Chief Complaint Primary Care Provider: Galo Ortez DO Chief Complaint: abd pain History of Present Illness Dionne Rocha is a 47 year old female seen general surgeon in the past for acalculous cholecystitis, she has been a CT scan abdomen pelvis, HIDA scan and gallbladder ultrasound presenting today with chief complaint of worsening of her symptoms. Patient is stating that he was seen by multiple physicians regarding her ulcero glandular lymphadenopathy, rightSubmandibular lymph node, she was diagnosed with tularemia has seen multiple cycles of antibiotics, patient was diagnosed with leukemia in February, patient has had autoimmune work-up, lymph node biopsy was not done because ofTularemia contagious. Active active symptoms Include hot flashes, intermittent fever, symptoms are anorexia, malaise, right upper quadrant fullness, persistent nausea, losing weight Review of Systems Const: Reports: fever(s), chills and change in weight Eyes: Denies: change in vision ENMT: Denies: throat pain Card: Denies: chest pain Resp: Denies: dyspnea GI: Reports: abdominal pain and nausea Skin/Breast: Reports: rash Medications/Allergies Home Medications Medication Instructions Recorded Confirmed Last Taken Type amoxicillin 875 mg-potassium 1 tab PO Q12H #10 tabs 06/30/23 07/02/23 Unknown Rx clavulanate 125 mg tablet oxycodone-acetaminophen 5 mg-325 1 tab PO Q8H PRN pain #10 tabs 06/30/23 07/02/23 Unknown Rx mg tablet (Percocet) pantoprazole 40 mg tablet,delayed 40 mg PO BID 6 weeks #84 tabs 07/02/23 07/02/23 Unknown Rx release (Protonix) Allergies Allergy/AdvReac Type Severity Reaction Status Date / Time banana Allergy blisters Verified 07/02/23 14:06 in mouth pecan nut Allergy ALGY-Rash Verified 07/02/23 14:06 walnut Allergy ALGY-Anaphy Verified 07/02/23 14:06 laxis clorox Allergy blisters Uncoded 07/02/23 14:07 cyclines Allergy ADR-Itching Uncoded 07/02/23 14:06 latex gloves Allergy rash Uncoded 07/02/23 14:07 Vitals/I&O/Wt Last Vital Signs Temp 97.6 F 07/12/23 20:52 Pulse 74 07/12/23 23:44 Resp 16 07/12/23 23:44 BP 96/49 07/12/23 23:44 Pulse Ox 99 07/12/23 23:44 O2 Del Method Room Air 07/12/23 23:44 Weight last 48 hrs Weight 80.467 kg Physical Exam Narrative: Awake and alert Right upper quadrant fullness GCS 15 Anxious appearing Hypertensive Currently on room air is at the bedside Nonfocal Pleasant and cooperative S1, S2 Data 07/12/23 22:46 07/12/23 22:46 A&P Assessment and plan (1) Abdominal pain: (2) Elevated liver enzymes: (3) Epigastric pain: (4) Acalculous cholecystitis: (5) Tularemia, ulceroglandular: Plan Acalculous cholecystitis N.p.o. Start Zosyn Start IV fluids Dr. Ortez consulted Patient stated that she normally stays low on blood pressure and her blood sugar always stay on the lower side she is not diabetic, patient was following with ID at [facility] we will request records We will check her tularemia panel again At this point I am not sure if she will go for surgical intervention considering her underlying conditions Patient is upset that she has not follow-up with any ID at [facility] and they have not done any biopsy DVT prophylaxis SCDs N.p.o. for now Start IV fluids She had an extensive work-up done which I will review by requesting records I would avoid adding more autoimmune work-up Attestations Medical Necessity Statement*: More than 2 midnights anticipated Diagnoses Abdominal pain R10.9 Elevated liver enzymes R74.8 Epigastric pain R10.13 Acalculous cholecystitis K81.9 Tularemia, ulceroglandular A21.0
[2023-07-13] VITALS (11 sets, daily range): BP systolic 94–119; BP diastolic 53–74; PULSE 52–86; RESP 16–19; TEMP 36.2–37.2; O2SAT 93–100
[2023-07-13 01:24] LABS: Hepatitis A Antibody IgM Non-Reactive (Nonreactive); Hepatitis B Core AB, Total Non-Reactive (Nonreactive); Hepatitis B Surface AB 10.6 (11.5-1000); Hepatitis B Surface Antigen Non-Reactive (Nonreactive); Hepatitis C Virus Antibody Non-Reactive (Nonreactive)
[2023-07-13 01:39] LABS: Estmated Average Glucose 97
[2023-07-13] MEDS: HYDROmorphone 1 mg/mL INJ 1 mL 0.2 MG IVP (02:38)
[2023-07-13] MEDS: doxycycline 100 MG in sodium chloride 0.9% (plus) 100 ML IV ×2 (02:39→13:26)
[2023-07-13] MEDS: dextrose 5%-sod chloride 0.9% 1,000 ML 100 ML IV ×3 (02:40→22:59)
[2023-07-13] MEDS: ondansetron 2 mg/ML SDV 2 mL 4 MG IVP ×2 (02:42→09:50)
[2023-07-13 06:00] LABS: Basophils # 0.1 10^3/uL (0.0-0.1); Basophils % 0.3 %; Hematocrit 38.9 % (36-47); Lymphocytes # 0.4 10^3/uL (0.8-4.8); Lymphocytes % 2.2 %; Mean Corpuscular HGB Conc 32.1 g/dL (30-55); Mean Corpuscular Hemoglobin 31.6 pg (27-33); Mean Corpuscular Volume 98.2 fl (85-98); Mean Platelet Volume 10.3 fL (7.4-10.4); Monocytes # 0.8 10^3/uL (0.2-0.9); Monocytes % 4.3 %; Neutrophils % 92.7 %; Nucleated Red Blood Cells % 0 %; Platelet Count 250 10^3/cmm (157-399); Red Blood Count 3.96 10^6/uL (3.85-5.65); Red Cell Distribution Width 12.2 % (12.1-15.1); White Blood Count 19.19 10^3/uL (3.29-11.43)
[2023-07-13] MEDS: metoclopramide 5 mg/mL SDV 2 mL IVP ×2 (06:13→20:59)
[2023-07-13] MEDS: lidocaine 1% 5 ML in potassium chloride premix 100 ML 26.25 ML IV (06:16)
[2023-07-13 06:22] LABS: C Reactive Protein 18.8 mg/L (0.0-4.9); Magnesium 1.6 mg/dL (1.7-2.3)
[2023-07-13 07:55] LABS: Alanine Aminotransferase 668 U/L (0-33); Albumin Level 3.5 g/dL (3.5-5.2); Alkaline Phosphatase 521 U/L (35-105); Anion Gap 14.2 (5-19); Aspartate Amino Transferase 667 U/L (0-32); Blood Urea Nitrogen 9 mg/dL (6-20); Calcium 8.7 mg/dL (8.5-10.5); Carbon Dioxide 23 mmol/L (22-29); Chloride 105 mmol/L (98-107); Globulin 3.1 g/dL (1.3-4.6); Glomerular Filtration Rate 133.4 mL/min (90-130); Glucose 160 mg/dL (65-115); Osmolality Calculated 290 mOsm/kg (285-295); Potassium 3.2 mmol/L (3.5-5.1); Sodium 139 mmol/L (136-145); Total Bilirubin 3.4 mg/dL (0.15-1.2); Total Protein 6.6 g/dL (6.6-8.7)
--- NOTE | 2023-07-13 09:08 | P.CONIM_ITS ---
Providers/Reason For Consult Consulting Physician/Specialty*: Dr. Galo Ortez DO/General surgery Reason for Consult*: Abdominal pain Attending Physician: Kurtis Xiao MD Primary Care Provider: Galo Ortez DO History of Present Illness History of Present Illness Dionne Rocha is a 47 year old female who presented to the hospital with a 2- week history of worsening right upper quadrant abdominal pain. She has nausea but denies any emesis. Eating makes pain worse. Nothing makes pain better. The pain does not seem to radiate. Pain is sharp and constant. Denies any diarrhea or constipation. She was recently diagnosed with tularemia and is being treated for that. She had a HIDA scan recently which was indicative of chronic cholecystitis. She had a gallbladder ultrasound while in the emergency room that was within normal limits. LFTs are elevated. Review of Systems General: Reports: 10 or more systems reviewed and unremarkable except in HPI and below Medications/Allergies Home Medications Medication Instructions Recorded Confirmed Last Taken Type amoxicillin 875 mg-potassium 1 tab PO Q12H #10 tabs 06/30/23 07/02/23 Unknown Rx clavulanate 125 mg tablet oxycodone-acetaminophen 5 mg-325 1 tab PO Q8H PRN pain #10 tabs 06/30/23 07/02/23 Unknown Rx mg tablet (Percocet) pantoprazole 40 mg tablet,delayed 40 mg PO BID 6 weeks #84 tabs 07/02/23 07/02/23 Unknown Rx release (Protonix) Allergies Allergy/AdvReac Type Severity Reaction Status Date / Time banana Allergy blisters Verified 07/02/23 14:06 in mouth pecan nut Allergy ALGY-Rash Verified 07/02/23 14:06 walnut Allergy ALGY-Anaphy Verified 07/02/23 14:06 laxis clorox Allergy blisters Uncoded 07/02/23 14:07 cyclines Allergy ADR-Itching Uncoded 07/02/23 14:06 latex gloves Allergy rash Uncoded 07/02/23 14:07 Current Medications Generic Name Dose Route Start Last Admin Trade Name Freq PRN Reason Stop Dose Admin Hydromorphone HCl 0.2 mg 07/13/23 01:06 07/13/23 02:38 Hydromorphone 1 Mg/Ml Inj 1 Ml IVP 0.2 mg Q4H PRN Administration SEVERE PAIN Dextrose/Sodium Chloride 1,000 mls @ 100 mls/hr 07/13/23 01:06 07/13/23 02:40 Dextrose 5%-Sod Chloride 0.9% IV 100 mls/hr .Q10H EWA Administration Doxycycline Hyclate 100 mg/ 100 mls @ 100 mls/hr 07/13/23 01:06 07/13/23 06:55 Sodium Chloride IV Infused Q12H EWA Infusion Protocol Metoclopramide HCl 5 mg 07/13/23 05:11 07/13/23 06:13 Metoclopramide 5 Mg/Ml Sdv 2 Ml IVP 5 mg Q6H PRN Administration NAUSEA AND VOMITING Ondansetron HCl 4 mg 07/13/23 01:06 07/13/23 02:42 Ondansetron 2 Mg/Ml Sdv 2 Ml IVP 4 mg Q6H PRN Administration NAUSEA AND VOMITING Vitals/I&O/Wt Last Vital Signs Temp 97.9 F 07/13/23 08:23 Pulse 73 07/13/23 08:48 Resp 16 07/13/23 08:48 BP 103/69 07/13/23 08:23 Pulse Ox 98 07/13/23 08:48 O2 Del Method Room Air 07/13/23 08:48 07/12/23 07/13/23 07/13/23 22:59 06:59 14:59 Intake Total 1100 / 1100 Balance 1100 / 1100 Weight last 48 hrs Weight 180 lb 9 oz Weight 177 lb 6.4 oz Physical Exam Narrative: General : Patient is well developed , no acute distress, oriented x3 Head : Normal cephalic, a-traumatic. Ears : Pinnae and external canal are normal. Hearing is normal. Eyes : PERRLA, Sclera and injection are normal. No conjunctival discharge. Nose : Mucous membranes are without erythema. Throat : buccal mucosa is normal, gums are without significant recession or hypertrophy. Lungs : Equal chest rise bilaterally, no use of accessory muscles, trachea is midline. Cor : Rate and rhythm are normal. Abdomen : Soft, ND, tender to palpation right upper quadrant, negative Alexander's, no g/r/m Extremities : No edema, no cyanosis or clubbing, dorsalis pedis pulses are present bilaterally, non-tender to palpation of calves. Upper extremities are normal bilaterally. Back : non-tender to palpation, no CVA tenderness. Neuro : CN II - XII intact, Upper and lower extremities have equal and full strength Data 07/13/23 05:22 07/13/23 05:22 A&P Assessment and plan (1) Hepatitis: (2) Hyperbilirubinemia: (3) Abdominal pain: (4) Chronic cholecystitis: (5) Tularemia, ulceroglandular: Plan Appears that she has hepatitis, likely autoimmune versus viral No acute surgical intervention at this time as ultrasound did not show acute cholecystitis Medical management per primary Plan for outpatient cholecystectomy in the near future Coding Level of Care Code 30508 Diagnoses Hepatitis K75.9 Hyperbilirubinemia E80.6 Abdominal pain R10.9 Chronic cholecystitis K81.1 Tularemia, ulceroglandular A21.0
[2023-07-13] MEDS: piperacillin-tazobactam 3.375 GM in sodium chloride 0.9% (plus) 50 ML IV ×3 (09:35→22:59)
[2023-07-13] MEDS: pantoprazole 40 mg SDV IVP ×2 (09:49→18:00)
[2023-07-13 09:56] LABS: Erythrocyte Sedimentation Rate 21 mm/hr (0-15)
[2023-07-13 10:11] LABS: Gamma Glutamyl Transferase 302 U/L (5-36); Lipase 19 U/L (13-60)
--- NOTE | 2023-07-13 16:20 | P.PN_ITS ---
Subjective Subjective: Patient was seen this morning, ? She tells me that back in December, she had COVID, and it took some time for her to recover, ? Then in January, she had cervical lymphadenopathy, with open ulcerated of gla ndular drainage from her cervical lymphadenopathy, ? She presented here to [facility] was diagnosed with infectious mono, was placed on antibiotics, she continued to have drainage enlarged cervical lymph nodes she then presented to [facility] was also diagnosed with mono, and placed on a different round of antibiotics but continued to have drainage, sent ? She then went to [facility] in [place], she had extensive blood evaluation blood test and was diagnosed eventually with tularemia, and was started on doxycycline and ciprofloxacin, ? She then had a relapse of her cervical lymphadenopathy, and got a different round of antibiotics she is not exactly sure what it was called she did see infectious disease doctor but she tells me that she only saw the infectious disease doctor once, and has not had a chance to follow-up since then, ? She continues to have some degree of cervical lymphadenopathy but is significantly improved, she also saw an ENT doctor at 1 point, and she had a biopsy, was told she does not have any leukemia or lymphoma ? 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 Vitals/I&O/Wt Last Vital Signs Temp 98.1 F 07/13/23 15:51 Pulse 55 L 07/13/23 15:51 Resp 18 07/13/23 15:51 BP 107/70 07/13/23 15:51 Pulse Ox 97 07/13/23 15:51 O2 Del Method Room Air 07/13/23 15:51 07/13/23 07/13/23 07/13/23 06:59 14:59 22:59 Intake Total 1100 / 1100 2555 / 2555 Balance 1100 / 1100 2555 / 2555 Weight last 48 hrs Weight 81.902 kg Weight 80.467 kg Physical Exam Const: COMMON NORMALS: no acute distress and patient oriented x3 Resp: COMMON NORMALS: normal respiratory effort, No retractions, No use of accessory muscles and clear to auscultation bilaterally AUSCULTATION: clear to auscultation bilaterally Cardio: COMMON NORMALS: regular rate, regular rhythm, S1 normal heart sound present and S2 normal heart sound present RATE: regular rate RHYTHM: regular rhythm HEART SOUNDS: S1 normal heart sound present and S2 normal heart sound present GI: COMMON NORMALS: Normal to inspection, nondistended, normoactive bowel sounds present and non-tender Extremity: COMMON NORMALS: no pedal edema Neuro: COMMON NORMALS: patient oriented x3 Psych: COMMON NORMALS: mental status grossly normal Data 07/13/23 05:22 07/13/23 05:22 A&P Assessment and plan (1) Abdominal pain: (2) Elevated liver enzymes: (3) Epigastric pain: (4) Acalculous cholecystitis: (5) Tularemia, ulceroglandular: Plan Acalculous cholecystitis ? CT scan from 06/30/[address]/CT abdomen pelvis w con* [id number] IMPRESSION: 1. ? Mild gallbladder distention with associated gallbladder wall thickening. No radiodense gallstones. If clinically indicated, ultrasound or HIDA scan would provide a more sensitive evaluation for acute gallbladder pathology. 2. ? Additional findings, as above. -HIDA scan 07/05/2023 -IMPRESSION: 1.? No evidence of acute cholecystitis. 2.? No gallbladder emptying on the ejection fraction imaging. Findings can be seen with chronic acalculous cholecystitis or chronic gallbladder dysfunction. 3.? Hepatomegaly ? Gallbladder ultrasound. ?FINDINGS: Liver: The liver is mildly hyperechoic measuring 15.6 cm. Gallbladder: Prominent fluid-filled gallbladder measuring 13.0 cm in length. No gallbladder wall thickening. No gallstones. Biliary ducts: Normal. No stones. No dilation. Pancreas: Visualized pancreas is unremarkable. Right kidney: Normal. No mass. No hydronephrosis. Intraperitoneal space: No ascites. Currently on clears ? WBC has gone up to 19, ? ESR 21, ? Bili is 3.4, ? GGT 302 -AST 667 ? ALT 668, ? Alk phos 521, ? CRP 18, ? Pro-Eyal 12 Start Zosyn Start IV fluids, follow blood cultures Dr. Ortez consulted Patient stated that she normally stays low on blood pressure and her blood sugar always stay on the lower side she is not diabetic, patient was following with ID at [facility] we will request records, continue doxycycline IV We will check her tularemia panel again ? History of also glandular tularemia, with history of pneumonia associate with tularemia DVT prophylaxis SCDs She had an extensive work-up done which I will review by requesting records Attestations Medical Necessity Statement*: Patient requires hospitalization for transaminitis, elevated white blood cell count, a calculus cholecystitis Diagnoses Abdominal pain R10.9 Elevated liver enzymes R74.8 Epigastric pain R10.13 Acalculous cholecystitis K81.9 Tularemia, ulceroglandular A21.0
[2023-07-13 18:27] LABS: Blood Urea Nitrogen 6 mg/dL (6-20); Calcium 8.6 mg/dL (8.5-10.5); Carbon Dioxide 21 mmol/L (22-29); Chloride 108 mmol/L (98-107); Glomerular Filtration Rate 133.4 mL/min (90-130); Glucose 111 mg/dL (65-115); Magnesium 1.9 mg/dL (1.7-2.3); Osmolality Calculated 288 mOsm/kg (285-295); Sodium 140 mmol/L (136-145)
[2023-07-13 18:28] LABS: Anion Gap 14.9 (5-19); Potassium 3.9 mmol/L (3.5-5.1)
[2023-07-14] VITALS: BP 106/65; PULSE 65; RESP 17; TEMP 36.3; O2SAT 95
[2023-07-14] MEDS: doxycycline 100 MG in sodium chloride 0.9% (plus) 100 ML IV (01:02)
[2023-07-14 04:00] VITALS: BP 94/60; PULSE 62; RESP 18; TEMP 36.4; O2SAT 95
[2023-07-14 05:07] LABS: Basophils % 0.3 %; Eosinophils # 0.3 10^3/uL (0.0-0.8); Eosinophils % 3.1 %; Hematocrit 34.8 % (36-47); Lymphocytes # 1.5 10^3/uL (0.8-4.8); Lymphocytes % 16.1 %; Mean Corpuscular HGB Conc 31.3 g/dL (30-55); Mean Corpuscular Hemoglobin 31.2 pg (27-33); Mean Corpuscular Volume 99.7 fl (85-98); Mean Platelet Volume 10.7 fL (7.4-10.4); Monocytes # 0.5 10^3/uL (0.2-0.9); Monocytes % 5.7 %; Neutrophils # 6.91 10^3/uL (1.8-7.7); Neutrophils % 74.5 %; Nucleated Red Blood Cells % 0 %; Platelet Count 187 10^3/cmm (157-399); Red Blood Count 3.49 10^6/uL (3.85-5.65); Red Cell Distribution Width 12.7 % (12.1-15.1); White Blood Count 9.28 10^3/uL (3.29-11.43)
[2023-07-14 05:31] LABS: Alanine Aminotransferase 450 U/L (0-33); Albumin Level 2.6 g/dL (3.5-5.2); Alkaline Phosphatase 367 U/L (35-105); Anion Gap 12.7 (5-19); Aspartate Amino Transferase 232 U/L (0-32); Blood Urea Nitrogen 5 mg/dL (6-20); C Reactive Protein 66.1 mg/L (0.0-4.9); Carbon Dioxide 21 mmol/L (22-29); Chloride 111 mmol/L (98-107); Glomerular Filtration Rate 90.5 mL/min (90-130); Glucose 105 mg/dL (65-115); Magnesium 1.7 mg/dL (1.7-2.3); Osmolality Calculated 290 mOsm/kg (285-295); Phosphorus 2.9 mg/dL (2.5-4.5); Potassium 3.7 mmol/L (3.5-5.1); Sodium 141 mmol/L (136-145); Total Bilirubin 2.2 mg/dL (0.15-1.2); Total Protein 5.6 g/dL (6.6-8.7)
[2023-07-14 05:48] LABS: Procalcitonin 7.44 ng/mL (0-0.5)
[2023-07-14 07:13] VITALS: BP 123/83; PULSE 55; RESP 16; TEMP 36.6; O2SAT 98
[2023-07-14] MEDS: piperacillin-tazobactam 3.375 GM in sodium chloride 0.9% (plus) 50 ML IV (07:21)
[2023-07-14 08:00] VITALS: PULSE 87; RESP 16; O2SAT 99
--- NOTE | 2023-07-14 08:11 | PM.PN ---
Subjective Subjective: Patient's abdominal pain nausea and vomiting have resolved. She is tolerating a clear diet. She reports that she is afraid to advance her diet more than that. Vitals/I&O/Wt Last Vital Signs Temp 97.9 F 07/14/23 07:13 Pulse 55 L 07/14/23 07:13 Resp 16 07/14/23 07:13 BP 123/83 07/14/23 07:13 Pulse Ox 98 07/14/23 07:13 O2 Del Method Room Air 07/14/23 07:13 07/13/23 07/14/23 07/14/23 22:59 06:59 14:59 Intake Total 1825 / 4380 150 / 4530 Balance 1825 / 4380 150 / 4530 Weight last 48 hrs Weight 188 lb 3.2 oz Weight 180 lb 9 oz Weight 177 lb 6.4 oz Physical Exam Narrative: General: No acute distress, awake alert and oriented x3 Abdomen: Soft, nontender, nondistended, no guarding rebound or masses Data 07/14/23 04:28 07/14/23 04:28 Micro: Microbiology 07/13/23 17:06 Blood Culture - Preliminary Blood SPECIMEN COLLECTED 07/13/23 16:56 Blood Culture - Preliminary Blood SPECIMEN COLLECTED A&P Assessment and plan (1) Elevated liver enzymes: (2) Hepatitis: (3) Chronic cholecystitis: Plan Regular diet No acute surgical intervention. Surgically stable for discharge Follow-up with me as an outpatient for a scheduled EGD. We will likely follow that with an elective cholecystectomy. She may benefit from referrals to our in-house infectious disease and rheumatology departments. Medical management per primary Attestations Medical Necessity Statement*: Per primary Coding Level of Care Code Acute Code for Chg Fwd Diagnoses Elevated liver enzymes R74.8 Hepatitis K75.9 Chronic cholecystitis K81.1
[2023-07-14] MEDS: pantoprazole 40 mg SDV IVP (09:48)
--- NOTE | 2023-07-14 11:15 | P.DS_ITS ---
Discharge Providers Date of Admission: 07/12/23 23:43 Date of Discharge: July 14, 2023 Attending Provider at Admission: Libby Abdi MD Attending Provider at Discharge: Kurtis Xiao MD Primary Care Provider: Galo Ortez DO Diagnoses at Discharge Discharge Diagnosis (1) Elevated liver enzymes: Status: Acute (2) Hepatitis: Status: Acute (3) Chronic cholecystitis: Status: Acute Reason for Visit Reason for Visit: abd pain Hospital Course Hospital Course Dionne Rocha is a 47 year old female seen general surgeon in the past for acalculous cholecystitis, she has been a CT scan abdomen pelvis, HIDA scan and gallbladder ultrasound presenting today with chief complaint of worsening of her symptoms.? Patient is stating that he was seen by multiple physicians regarding her ulcero glandular lymphadenopathy, right Submandibular lymph node, she was diagnosed with tularemia has seen multiple cycles of antibiotics, Patient was admitted to [facility] for concerns for acalculous cholecystitis ? CT scan from 06/30/[address]/CT abdomen pelvis w con* [id number] IMPRESSION: 1. ? Mild gallbladder distention with associated gallbladder wall thickening. No radiodense gallstones. If clinically indicated, ultrasound or HIDA scan would provide a more sensitive evaluation for acute gallbladder pathology. 2. ? Additional findings, as above. -HIDA scan 07/05/2023 -IMPRESSION: 1.? No evidence of acute cholecystitis. 2.? No gallbladder emptying on the ejection fraction imaging. Findings can be se en with chronic acalculous cholecystitis or chronic gallbladder dysfunction. 3.? Hepatomegaly ? Gallbladder ultrasound. ?FINDINGS: Liver: The liver is mildly hyperechoic measuring 15.6 cm. Gallbladder: Prominent fluid-filled gallbladder measuring 13.0 cm in length. No gallbladder wall thickening. No gallstones. Biliary ducts: Normal. No stones. No dilation. Pancreas: Visualized pancreas is unremarkable. Right kidney: Normal. No mass. No hydronephrosis. Intraperitoneal space: No ascites. ? General surgery was consulted, recommended medical management with outpatient follow-up for consideration of cholecystectomy, ? Due to leukocytosis of 19,000, elevated liver function, bilirubin, she was monitored as inpatient with IV antibiotics, ? She remained afebrile, no second of abdominal pain, bilirubin improved, LFTs improved, no nausea, vomiting, ? Will be discharged on instructions to slowly advance diet, continue at least clears for another 24 hours, will be discharged on a GI soft diet, ? If any recurrent abdominal pain, please go to the emergency room ? So far blood cultures have been unremarkable she is afebrile, clinically improved, For her transaminitis, ? Hepatitis panel was within normal limits ? HIV panel pending, ? Autoimmune work-up pending, ? Ultrasound as above ? Patient's liver function is improving GGT is down to 302, AST 232, ALT 450, alk phos 367 ? Needs to follow-up with primary care provider in the next 24 to 48 hours monitor liver function ? If her liver function does not improve back to normal she needs to follow-up with GI in at least a month ? Can consider liver biopsy based on clinical progress ? Patient was advised to abstain from alcohol consumption, stating from Tylenol For her history of tularemia, ulceroglandular: ? Status post multiple treatments and evaluation at [facility], I have not received the records as so for ? On clinical examination does have lymphadenopathy, right cervical change, patient tells me that it is about at baseline has persisted for the last few months ? Follow-up with infectious disease as outpatient Physical Exam Const: COMMON NORMALS: no acute distress and patient oriented x3 HENMT: COMMON NORMALS: normocephalic HEAD & SCALP: normocephalic Resp: COMMON NORMALS: normal respiratory effort, No retractions, No use of accessory muscles and clear to auscultation bilaterally AUSCULTATION: clear to auscultation bilaterally Cardio: COMMON NORMALS: regular rate, regular rhythm, S1 normal heart sound present and S2 normal heart sound present RATE: regular rate RHYTHM: regular rhythm HEART SOUNDS: S1 normal heart sound present and S2 normal heart sound present GI: COMMON NORMALS: Normal to inspection, nondistended, normoactive bowel sounds present, Soft to palpation, non-tender, No hepatosplenomegaly present, no masses and no bruits PALPATION: Yes Soft to palpation and Yes No hepatosplenomegaly present Extremity: COMMON NORMALS: no pedal edema Neuro: COMMON NORMALS: patient oriented x3 Psych: COMMON NORMALS: mental status grossly normal Discharge Data Studies Completed and Pending Completed Studies During Hospitalization Category Date Time Status US gall bladder 33536 Stat Ultrasound 07/12/23 21:42 Completed Pending at discharge Category Date Time Status ONEYDA Profile Rheumatology Stat Lab 07/13/23 10:03 Received Blood Culture Stat Lab 07/13/23 17:06 Results C Reactive Protein AM LABS Lab 07/15/23 04:00 Ordered C Reactive Protein AM LABS Lab 07/16/23 04:00 Ordered Complete Blood Count w/Auto AM LABS Lab 07/15/23 04:00 Ordered Complete Blood Count w/Auto AM LABS Lab 07/16/23 04:00 Ordered Comprehensive Metabolic Panel AM LABS Lab 07/15/23 04:00 Ordered Comprehensive Metabolic Panel AM LABS Lab 07/16/23 04:00 Ordered Francisella Tularensis DA Routine Lab 07/13/23 05:22 Received HIV 1&2 Antigen & Antibody Routine Lab 07/13/23 10:03 Received Lymes Ab IgG/IgM ref WB [Lymes Western Blot] Stat Lab 07/13/23 10:03 Received Magnesium AM LABS Lab 07/15/23 04:00 Ordered Magnesium AM LABS Lab 07/16/23 04:00 Ordered Mitochondrial AB Screen Routine Lab 07/13/23 05:22 Received Phosphorus AM LABS Lab 07/15/23 04:00 Ordered Phosphorus AM LABS Lab 07/16/23 04:00 Ordered Procalcitonin AM LABS Lab 07/15/23 04:00 Ordered Procalcitonin AM LABS Lab 07/16/23 04:00 Ordered Radiology Impressions Gallbladder Ultrasound 07/12/23 21:42 IMPRESSION: 1. No acute findings. 2. Mildly increased echogenicity of the liver, most likely fatty infiltration. Laboratory Results WBC 9.28 10^3/uL (3.29-11.43) 07/14/23 04:28 RBC 3.49 10^6/uL (3.85-5.65) L 07/14/23 04:28 Hgb 10.90 g/dL (11.27-16.99) L 07/14/23 04:28 Hct 34.8 % (36-47) L 07/14/23 04:28 MCV 99.7 fl (85-98) H 07/14/23 04:28 MCH 31.2 pg (27-33) 07/14/23 04:28 MCHC 31.3 g/dL (30-55) 07/14/23 04:28 RDW 12.7 % (12.1-15.1) 07/14/23 04:28 Plt Count 187 10^3/cmm (157-399) 07/14/23 04:28 MPV 10.7 fL (7.4-10.4) H 07/14/23 04:28 Neut % (Auto) 74.5 % 07/14/23 04:28 Lymph % (Auto) 16.1 % 07/14/23 04:28 [place] % (Auto) 5.7 % 07/14/23 04:28 Eos % (Auto) 3.1 % 07/14/23 04:28 Baso % (Auto) 0.3 % 07/14/23 04:28 Neut # (Auto) 6.91 10^3/uL (1.8-7.7) 07/14/23 04:28 Lymph # (Auto) 1.5 10^3/uL (0.8-4.8) 07/14/23 04:28 [place] # (Auto) 0.5 10^3/uL (0.2-0.9) 07/14/23 04:28 Eos # (Auto) 0.3 10^3/uL (0.0-0.8) 07/14/23 04:28 Baso # (Auto) 0.0 10^3/uL (0.0-0.1) 07/14/23 04:28 Nucleated RBC % (auto) 0 % 07/14/23 04:28 Nucleated RBCs # 0.0 /100WBC 07/14/23 04:28 ESR 21 mm/hr (0-15) H 07/13/23 05:22 Sodium 141 mmol/L (136-145) 07/14/23 04:28 Potassium 3.7 mmol/L (3.5-5.1) 07/14/23 04:28 Chloride 111 mmol/L (98-107) H 07/14/23 04:28 Carbon Dioxide 21 mmol/L (22-29) L 07/14/23 04:28 Anion Gap 12.7 (5-19) 07/14/23 04:28 BUN 5 mg/dL (6-20) L 07/14/23 04:28 Creatinine 0.7 mg/dL (0.5-0.9) 07/14/23 04:28 GFR Calculation 90.5 mL/min (90-130) 07/14/23 04:28 Glucose 105 mg/dL (65-115) 07/14/23 04:28 Estimat Average Glucose 97 07/12/23 22:46 Hemoglobin A1c 5.0 % (4.0-6.0) 07/12/23 22:46 Calculated Osmolality 290 mOsm/kg (285-295) 07/14/23 04:28 Calcium 8.0 mg/dL (8.5-10.5) L 07/14/23 04:28 Phosphorus 2.9 mg/dL (2.5-4.5) 07/14/23 04:28 Magnesium 1.7 mg/dL (1.7-2.3) 07/14/23 04:28 Total Bilirubin 2.2 mg/dL (0.15-1.2) H 07/14/23 04:28 GGT 302 U/L (5-36) H 07/13/23 05:22 AST 232 U/L (0-32) H 07/14/23 04:28 ALT 450 U/L (0-33) H 07/14/23 04:28 Alkaline Phosphatase 367 U/L (35-105) H 07/14/23 04:28 C-Reactive Protein 66.1 mg/L (0.0-4.9) H 07/14/23 04:28 Total Protein 5.6 g/dL (6.6-8.7) L 07/14/23 04:28 Albumin 2.6 g/dL (3.5-5.2) L 07/14/23 04:28 Globulin 3.0 g/dL (1.3-4.6) 07/14/23 04:28 Lipase 19 U/L (13-60) 07/13/23 05:22 Procalcitonin 7.44 ng/mL (0-0.5) H 07/14/23 04:28 HCG, Qual Negative (Negative) 07/12/23 22:46 Urine Color Sirisha (Yellow) 07/12/23 23:18 Urine Appearance Clear (CLEAR) 07/12/23 23:18 Urine pH 6 (5-7) 07/12/23 23:18 Ur Specific [place] 1.020 (1.005-1.030) 07/12/23 23:18 Urine Protein 1+ (Negative) H 07/12/23 23:18 Urine Glucose (UA) Norm (Normal) 07/12/23 23:18 Urine Ketones 1+ (Negative) H 07/12/23 23:18 Urine Blood Neg (Negative) 07/12/23 23:18 Urine Nitrate Negative (Negative) 07/12/23 23:18 Urine Bilirubin 2+ (Negative) H 07/12/23 23:18 Urine Urobilinogen 8 mg/dL (Negative) H 07/12/23 23:18 Ur Leukocyte Esterase Trace (Negative) H 07/12/23 23:18 Urine RBC None /hpf (0-2) 07/12/23 23:18 Urine WBC 0-4 /hpf (0-5) H 07/12/23 23:18 Ur Squamous Epith Cells None /hpf (0-5) 07/12/23 23:18 Amorphous Sediment 1+ /hpf 07/12/23 23:18 Urine Bacteria None /hpf (NONE) 07/12/23 23:18 Urine Mucus 4+ /hpf 07/12/23 23:18 Hepatitis A IgM Ab Non-reactive (Nonreactive) 07/12/23 22:44 Hep Bs Antigen Non-reactive (Nonreactive) 07/12/23 22:44 Hep Bs Antibody 10.6 (11.5-1000) L 07/12/23 22:44 Hep B Core Total Ab Non-reactive (Nonreactive) 07/12/23 22:44 Hepatitis C Antibody Non-reactive (Nonreactive) 07/12/23 22:44 Vitals Last Vital Signs Temp 97.9 F 07/14/23 07:13 Pulse 87 07/14/23 08:00 Resp 16 07/14/23 08:00 BP 123/83 07/14/23 07:13 Pulse Ox 99 07/14/23 08:00 O2 Del Method Room Air 07/14/23 08:00 Discharge Plan Discharge Patient Disposition: Home Condition: Stable Prescriptions: New amoxicillin-pot clavulanate 875-125 mg tablet 1 tab PO BID 10 Days Qty: 20 0RF Continued pantoprazole [Protonix] 40 mg tablet,delayed release (DR/EC) 40 mg PO BID 42 Days Qty: 84 1RF Discharge Orders: Discharge Order (Routine); Ordered 07/14/23 Ordered By: Kurtis Xiao Referrals: Margo Orozco MD [Physician] - 1 week (We have notified your physician's clinic of the need for a follow-up appointment to be scheduled. If you have not heard from them within the next 2 business days, please call them directly. ) Galo Ortez DO [Primary Care Provider] - Carmen Gilliam MD [Hospitalist] - 1 month Bhavin Salmeron MD [Physician] - 1-3 days Discharge Diet: Cardiac Discharge Activity: Resume usual activity Patient Instructions: Abdominal Pain (ED), Opioid Safety Activity Restrictions/Additional Instructions: ? Please have your primary care provider monitor your liver function ? AST is 222, ALT 450, alk phos 367, bilirubin 2.2 ? If you have recurrent abdominal pain please go to emergency room, ? Take Augmentin for the next 10 days, ? If you have any fevers, chills, abdominal pain please come back to the emergency room Discharge Attestations Time Spent in Discharge Care*: greater than 30 min Quality Metrics Clinical Quality Measures [ No reported AMI, CVA or VTE this stay] Coding Level of Care Code 82194 Total time (in minutes) for Discharge: 45 Diagnoses Elevated liver enzymes R74.8 Hepatitis K75.9 Chronic cholecystitis K81.1
[2023-07-14 11:32] VITALS: BP 137/87; PULSE 77; RESP 17; TEMP 36.7; O2SAT 96
[2023-07-15 08:40] LABS: THYROID PEROXIDASE ANTIBODIES 1 IU/mL (<9)
[2023-07-15 12:30] LABS: COMPLEMENT, TOTAL (CH50) >60 U/mL (31-60)
[2023-07-15 14:25] LABS: Lymes IGG WB <0.90 index
[2023-07-15 14:48] LABS: COMPLEMENT COMPONENT C3C 107 mg/dL (83-193); COMPLEMENT COMPONENT C4C 15 mg/dL (15-57)
[2023-07-15 16:48] LABS: ANA SCREEN, IFA NEGATIVE (NEGATIVE)
[2023-07-16 14:45] LABS: DNA AB (DS) CRITHIDIA,IFA NEGATIVE (NEGATIVE)
[2023-07-16 16:34] LABS: CENTROMERE B ANTIBODY <1.0 NEG AI (<1.0 NEG); JO-1 ANTIBODY <1.0 NEG AI (<1.0 NEG); RNP ANTIBODY <1.0 NEG AI (<1.0 NEG); SCL-70 ANTIBODY <1.0 NEG AI (<1.0 NEG); SJOGREN'S ANTIBODY (SS-A) <1.0 NEG AI (<1.0 NEG); SM ANTIBODY <1.0 NEG AI (<1.0 NEG); SS-B <1.0 NEG AI (<1.0 NEG)
[2023-07-23 13:44] LABS: HIV 1 & 2 Antigen Non-Reactive (Non-Reactiv)
[2023-07-23 13:45] LABS: HIV 1 & 2 Antibody Non-Reactive (Non-Reactiv)
== END 2023-07-14 13:00 | disposition home or self-care (01) | DRG 446 ==
LOC: ER 23:53 → MEDSURG 23:55
PROVIDERS: Admitting Provider Internal Medicine; Emergency Provider Emergency Medicine; PCP Surgery; Visit Provider Family Medicine
DX: K81.1 Chronic cholecystitis (principal); K75.9 Inflammatory liver disease, unspecified; Z86.16 Personal history of COVID-19; R59.0 Localized enlarged lymph nodes
CPT/HCPCS: 36415; 76705; 80048; 80053; 81001; 82977; 83036; 83516; 83690; 83735; 84100; 84145; 84703; 85025; 85651; 86000; 86140; 86160; 86162; 86235; 86255; 86376; 86617; 86705; 86706; 86709; 86803; 87040; 87340; 87806; 96374; 96375; 99285; C9113; J1170; J2270; J2405; J2543; J2765; J3480; J3490; J7030; J7042

== ENCOUNTER → 2023-07-17 10:42 | Outpatient (BNVA) | payer OTHER, SELFPAY | PROVIDERS: PCP Surgery; Visit Provider Family Medicine Adult Medicine | DX: K81.9 Cholecystitis, unspecified (principal); K75.9 Inflammatory liver disease, unspecified; E80.6 Other disorders of bilirubin metabolism; R59.1 Generalized enlarged lymph nodes | CPT/HCPCS: 80053; 80061; 85025 ==

== ENCOUNTER → 2023-07-18 08:04 | Outpatient (BNVA) | payer OTHER, SELFPAY | PROVIDERS: PCP Surgery; Visit Provider Surgery | DX: K81.9 Cholecystitis, unspecified; K75.9 Inflammatory liver disease, unspecified | CPT/HCPCS: 99204; 99214 ==

== ENCOUNTER 2023-07-19 10:45 | Day surgery (SDC) | payer OTHER, SELFPAY ==
[2023-07-19 11:15] VITALS: BP 164/90; PULSE 53; RESP 18; TEMP 36.6; O2SAT 99
[2023-07-19] MEDS: sodium chloride 0.9% 1,000 ML 30 ML IV (11:27)
--- NOTE | 2023-07-19 11:31 | ANES.PREANE2 ---
Pre-Anesthetic Assessment Height/Weight: Height 1.68 m Temp Pulse Resp BP Pulse Ox O2 Del Method 97.8 F 53 L 18 164/90 99 Room Air 07/19/23 11:15 07/19/23 11:15 07/19/23 11:15 07/19/23 11:15 07/19/23 11:15 07/19/23 11:15 Preop Diagnosis: Abd pain Operation Date: 07/19/23 11:45 Proposed Procedures p EGD 17081,R10.13,R10.9,K81.9(Not Applicable) - Galo Ortez, DO Was Beta Taye taken within 24 hours: N/A Was Clonidine taken within 24 hours: N/A Last intake: Intake Last Liquid Date 07/18/23 Last Liquid Time 19:30 Last Solid Date 07/18/23 Last Solid Time 18:00 Social No alcohol and No tobacco Exam alert, oriented x 3, clear to auscultation bilaterally and regular rate & rhythm Airway Submandibular: within normal limits Cervical ROM: within normal limits Mallampati: Class II Dentition: full (Poor dentition) History/ROS No significant history except as noted and No significant complaints Pulmonary None reported CV/HEM None reported None reported Hepatic None reported GI Gastroesophageal Reflux Disease Metabolic None reported Musc/skel Weakness Neuropsych None reported Anesthetic Plan ASA status: 2 Anesthesia: Anesthesia Evaluation and MAC Risk of > 500 ml blood loss (7ml/kg in children): No Medications/Allergies Home Medications Medication Instructions Recorded Confirmed Last Taken Type pantoprazole 40 mg tablet,delayed 40 mg PO BID 6 weeks #84 tabs 07/02/23 07/19/23 07/18/23 Rx release (Protonix) amoxicillin 875 mg-potassium 1 tab PO BID 10 days #20 tabs 07/14/23 07/19/23 07/18/23 Rx clavulanate 125 mg tablet Allergies Allergy/AdvReac Type Severity Reaction Status Date / Time banana Allergy blisters Verified 07/19/23 11:11 in mouth pecan nut Allergy ALGY-Rash Verified 07/19/23 11:11 walnut Allergy ALGY-Anaphy Verified 07/19/23 11:11 laxis clorox Allergy blisters Uncoded 07/19/23 11:11 cyclines Allergy ADR-Itching Uncoded 07/19/23 11:11 latex gloves Allergy rash Uncoded 07/19/23 11:11 Current Medications Generic Name Dose Route Start Last Admin Trade Name Nevilleq PRN Reason Stop Dose Admin Sodium Chloride 1,000 mls @ 30 mls/hr 07/19/23 11:15 07/19/23 11:27 Sodium Chloride 0.9% IV 07/20/23 11:14 30 mls/hr .Q24H EWA Administration PFSH Anesthesia Medical History Malnutrition 07/14/2023 albumin 2.6 Abnormal weight loss 08/2022 weight was ~265 pounds and 07/17/2023 181 pounds Lymphadenopathy Chronic cholecystitis Tularemia, ulceroglandular Treatment at [facility] Acalculous cholecystitis Abdominal pain Data Anesthesia Cardiac Studies: No Data to Display
--- NOTE | 2023-07-19 12:06 | W.PM.OPSUD ---
Surgery/Procedure H&P Update DATE OF PROCEDURE: July 19, 2023 DATE H&P PERFORMED: 07/18/23 H&P UPDATE INFORMATION: I have reviewed H&P completed within last 30 days, I have examined patient prior to procedure and No changes to prior documentation PREOP DIAGNOSIS: Abd pain PLANNED PROCEDURE: Operation Date: 07/19/23 11:45 Proposed Procedures p EGD 31876,R10.13,R10.9,K81.9(Not Applicable) - Galo Ortez DO
[2023-07-19 12:07] VITALS: BMI 29.5
[2023-07-19 12:19] LABS: OR HCG Qualitative Urine Negative (Negative)
[2023-07-19 12:20] VITALS: BP 120/81; PULSE 51; RESP 16; TEMP 36.2; O2SAT 97
[2023-07-19 12:27] VITALS: BP 118/78; PULSE 47; RESP 16; O2SAT 97
--- NOTE | 2023-07-19 13:34 | ANE.PACU2 ---
Inpatient post-anesthesia follow up: Airway intact: Yes Vital signs: Temperature 97.1 F Pulse Rate 47 Respiratory Rate 16 Blood Pressure 118/78 Pulse Oximetry 97 Oxygen Delivery Me thod Room Air Oxygen Flow Rate Fraction of Inspir ed Oxygen Hydration adequate: Yes Nausea and vomiting: No Pain level: 1 Mental status: Baseline
== END 2023-07-19 12:40 | disposition home or self-care (01) ==
PROVIDERS: Anesthesiology; Visit Provider Surgery
PROC: 0DJ08ZZ Inspection of Upper Intestinal Tract, Via Natural or Artificial Opening Endoscopic (ICD-10-PCS; CPT 43235; principal; 2023-07-19 11:45)
DX: R10.13 Epigastric pain (principal); R10.9 Unspecified abdominal pain; K81.9 Cholecystitis, unspecified; K21.9 Gastro-esophageal reflux disease without esophagitis; K29.50 Unspecified chronic gastritis without bleeding
CPT/HCPCS: 43239; 81025; 84703; 88305; 88342; J2704; J7030

== ENCOUNTER → 2023-07-30 13:32 | Outpatient (BNVA) | payer OTHER, SELFPAY | PROVIDERS: PCP Surgery; Visit Provider Surgery | DX: Z09 Encounter for follow-up examination after completed treatment for conditions other than malignant neoplasm (principal); K81.9 Cholecystitis, unspecified; Z12.11 Encounter for screening for malignant neoplasm of colon | CPT/HCPCS: 99214 ==

== ENCOUNTER 2023-08-01 10:27 | Day surgery (SDC) | payer OTHER, SELFPAY ==
[2023-08-01] VITALS (22 sets, daily range): BP systolic 83–132; BP diastolic 40–91; PULSE 47–96; RESP 10–30; TEMP 36.1–36.9; O2SAT 95–100; BMI 27.3
--- NOTE | 2023-08-01 11:23 | W.PM.OPSUD ---
Surgery/Procedure H&P Update DATE OF PROCEDURE: August 01, 2023 DATE H&P PERFORMED: 07/30/23 H&P UPDATE INFORMATION: I have reviewed H&P completed within last 30 days, I have examined patient prior to procedure and No changes to prior documentation PLANNED PROCEDURE: Operation Date: 08/01/23 12:00 Proposed Procedures p 91205 lap joo : K81.9(Not Applicable) - Galo Ortez DO
[2023-08-01] MEDS: sodium chloride 0.9% 1,000 ML 30 ML IV (11:24)
[2023-08-01] MEDS: ondansetron 2 mg/ML SDV 2 mL 4 MG IVP ×2 (11:24→14:58)
[2023-08-01] MEDS: scopolamine 1.5 Patch 1 PATCH TRANSDERMA (11:54)
--- NOTE | 2023-08-01 12:06 | P.ANESASSM_ITS ---
Pre-Anesthetic Assessment Height/Weight: Height 1.68 m Weight 77 kg Temp Pulse Resp BP Pulse Ox O2 Del Method 97.6 F 96 18 113/91 99 Room Air 08/01/23 10:57 08/01/23 10:57 08/01/23 10:57 08/01/23 10:57 08/01/23 10:57 08/01/23 11:03 Operation Date: 08/01/23 12:00 Proposed Procedures p 94225 lap joo : K81.9(Not Applicable) - Galo Ortez DO Familial anesthetic complications: None Was Beta Taye taken within 24 hours: N/A Was Clonidine taken within 24 hours: N/A Last intake: Intake Last Liquid Date 07/31/23 Last Liquid Time 15:00 Last Solid Date 07/11/23 Last Solid Time 12:00 Social No alcohol and No tobacco Exam alert, oriented x 3, clear to auscultation bilaterally and regular rate & rhythm Airway Mallampati: Class II Dentition: full GI Gastroesophageal Reflux Disease Anesthetic Plan ASA status: 2 Anesthesia: General Other: Bicitra pre-induction and RSI for frequent bilious vomiting (though recently now dry heaving) Risk of > 500 ml blood loss (7ml/kg in children): No Medications/Allergies Home Medications Medication Instructions Recorded Confirmed Last Taken Type pantoprazole 40 mg tablet,delayed 40 mg PO BID 6 weeks #84 tabs 07/02/23 07/31/23 07/30/23 Rx release (Protonix) Allergies Allergy/AdvReac Type Severity Reaction Status Date / Time banana Allergy blisters Verified 07/31/23 12:34 in mouth pecan nut Allergy ALGY-Rash Verified 07/31/23 12:34 walnut Allergy ALGY-Anaphy Verified 07/31/23 12:34 laxis clorox Allergy blisters Uncoded 07/31/23 12:34 cyclines Allergy ADR-Itching Uncoded 07/31/23 12:34 latex gloves Allergy rash Uncoded 07/31/23 12:34 Current Medications Generic Name Dose Route Start Last Admin Trade Name Freq PRN Reason Stop Dose Admin Sodium Chloride 1,000 mls @ 30 mls/hr 08/01/23 11:00 08/01/23 11:24 Sodium Chloride 0.9% IV 08/02/23 10:59 30 mls/hr .Q24H EWA Administration Ondansetron HCl 4 mg 08/01/23 10:52 08/01/23 11:24 Ondansetron 2 Mg/Ml Sdv 2 Ml IVP 4 mg Q5M PRN Administration NAUSEA AND VOMITING PFSH Anesthesia Medical History Malnutrition 07/14/2023 albumin 2.6 Abnormal weight loss 08/2022 weight was ~265 pounds and 07/17/2023 181 pounds Lymphadenopathy Chronic cholecystitis Tularemia, ulceroglandular Treatment at [facility] Acalculous cholecystitis Abdominal pain Female Reproductive History Date of last menstrual period: 07/31/23 Data Anesthesia Cardiac Studies: No Data to Display
[2023-08-01 12:08] LABS: OR HCG Qualitative Urine Negative (Negative)
[2023-08-01] MEDS: citric acid-sodium citrate 30 mL UDC PO (12:13)
[2023-08-01] MEDS: ceFAZolin 2,000 MG in sodium chloride 0.9% (plus) 50 ML 100 MG IV (13:20)
[2023-08-01] MEDS: lidocaine-epi 2% 20 mL INJ INJECTION (13:37)
--- NOTE | 2023-08-01 14:09 | P.OP_ITS ---
Operative Report Date of procedure: August 01, 2023 Surgeon: Galo Ortez DO Brief History: This is a very pleasant 47-year-old female who was previously diagnosed with cholecystitis. Laparoscopic cholecystectomy is indicated. The risk and benefits were explained and documented. Procedure: Preoperative diagnosis: Cholecystitis Postoperative diagnosis: Same Procedure performed: Laparoscopic cholecystectomy Surgeon: Dr. Galo Ortez DO Estimated blood loss: 5 mL Specimens: Gallbladder to pathology Complications: None apparent Description of procedure: Patient was wheeled into the operative room and placed on the OR table in a supine position. Abdomen was inspected prepped and draped in usual sterile fashion. Time-out was performed and all present were in agreement. A 15 blade scalp was used to make a stab incision in the left upper quadrant and intra- abdominal insufflation was achieved using a Veress needle. After localizing the tissue incisions were made and a 5 millimeter trocar was placed into the umbilicus as well as 2 in the right upper quadrant. A 12 millimeter trocar was placed in the epigastrium. Gallbladder was grasped and elevated. The triangle of Calot was carefully dissected using blunt dissection and electrocautery until the triangle of Calot clearly identified. The cystic duct was clipped proximally and double clipped distally. The duct was then ligated proximally. The cystic artery was doubly clipped and ligated. The gallbladder was then removed from the liver bed using electrocautery. The gallbladder was removed from the abdomen using an Endo-Catch bag through the epigastric incision. The liver bed was inspected and no bleeding was seen. The abdomen was irrigated and suctioned. All ports removed. Skin was washed and dried. Incisions were closed with 4-0 Monocryl in a subcuticular interrupted fashion. Skin glue was applied. Patient tolerated the procedure well.
--- NOTE | 2023-08-01 15:23 | PC.NURSE ---
1523 - Noted decrease in pts bp x 2 - pt positioned flat with NS open to left hand IV - pt arousable - FADUMO Burnett notified - at pts bedside with Dr Berman - 500cc NS bolus started -
[2023-08-01] MEDS: metoclopramide 5 mg/mL SDV 2 mL 10 MG IVP (15:28)
--- NOTE | 2023-08-01 15:47 | PC.NURSE ---
1540 - FADUMO Burnett at pts side - verbalized OK to move pt to Phase 2 - Dr Berman previously reviewed with patient s/s that would warrant a return to ER due to N/V - pt verbalizes understanding
--- NOTE | 2023-08-01 17:01 | SUR.PHASEII ---
17:00 ABDOMEN SURGICAL INCISION SITES INTACT AND DRY. NO DRAINAGE.
== END 2023-08-01 17:00 | disposition home or self-care (01) ==
PROVIDERS: Anesthesiology; PCP Surgery; Visit Provider Surgery
PROC: 0FT44ZZ Resection of Gallbladder, Percutaneous Endoscopic Approach (ICD-10-PCS; CPT 47562; principal; 2023-08-01 11:50)
DX: K81.1 Chronic cholecystitis (principal); K21.9 Gastro-esophageal reflux disease without esophagitis
CPT/HCPCS: 47562; 81025; 84703; 88304; J0330; J0690; J1100; J1885; J2250; J2405; J2704; J2710; J2765; J3010; J3490; J7030

== ENCOUNTER → 2023-08-20 08:58 | Outpatient (BNVA) | payer OTHER, SELFPAY | PROVIDERS: PCP Surgery; Visit Provider Student in an Organized Health Care Education/Training Program | DX: A21 Tularemia | CPT/HCPCS: 36415; 86000; 99204 ==

== ENCOUNTER → 2023-08-22 08:48 | Outpatient (BNVA) | payer OTHER, SELFPAY | PROVIDERS: PCP Surgery; Visit Provider Surgery | DX: Z90.49 Acquired absence of other specified parts of digestive tract (principal); Z98.890 Other specified postprocedural states | CPT/HCPCS: 99024 ==

== ENCOUNTER 2023-08-30 08:41 | Day surgery (SDC) | payer OTHER, SELFPAY ==
[2023-08-30 08:55] VITALS: BP 122/85; PULSE 67; RESP 18; TEMP 36.2; O2SAT 98; BMI 26.6
[2023-08-30 09:06] LABS: OR HCG Qualitative Urine Negative (Negative)
[2023-08-30] MEDS: sodium chloride 0.9% 1,000 ML 30 ML IV (09:10)
--- NOTE | 2023-08-30 09:15 | P.ANESASSM_ITS ---
Pre-Anesthetic Assessment Height/Weight: Height 1.68 m Weight 74.843 kg Temp Pulse Resp BP Pulse Ox O2 Del Method 97.2 F L 67 18 122/85 98 Room Air 08/30/23 08:55 08/30/23 08:55 08/30/23 08:55 08/30/23 08:55 08/30/23 08:55 08/30/23 08:55 Preop Diagnosis: screening Operation Date: 08/30/23 09:30 Proposed Procedures p 95690 colon G0121 screen colon A risk Z12.11(Not Applicable) - Galo Ortez DO Was Beta Taye taken within 24 hours: N/A Was Clonidine taken within 24 hours: N/A Last intake: Intake Last Liquid Date 08/29/23 Last Liquid Time 16:30 Last Solid Date 08/28/23 Last Solid Time 10:45 Social No alcohol and No tobacco Exam alert and oriented x 3 Airway Submandibular: within normal limits Cervical ROM: within normal limits Mallampati: Class II Dentition: full History/ROS No significant history except as noted Pulmonary None reported CV/HEM None reported None reported Hepatic Hepatitis (non-infectious July 12) GI None reported Metabolic None reported Musc/skel None reported Neuropsych None reported Anesthetic Plan ASA status: 1 Anesthesia: MAC Risk of > 500 ml blood loss (7ml/kg in children): No Medications/Allergies Home Medications Medication Instructions Recorded Confirmed Last Taken Type No Known Home Medications 08/20/23 08/28/23 Unknown History Allergies Allergy/AdvReac Type Severity Reaction Status Date / Time banana Allergy blisters Verified 08/30/23 08:51 in mouth Bleach (Sodium Hypochlorite) Allergy Blisters Verified 08/30/23 08:51 latex Allergy ALGY-Rash Verified 08/30/23 08:51 pecan nut Allergy ALGY-Rash Verified 08/30/23 08:51 walnut Allergy ALGY-Anaphy Verified 08/30/23 08:51 laxis cyclines Allergy ADR-Itching Uncoded 08/30/23 08:51 [facility] Anesthesia Medical History Tularemia, ulceroglandular Treatment at [facility] Malnutrition 07/14/2023 albumin 2.6 Abnormal weight loss 08/2022 weight was ~265 pounds and 07/17/2023 181 pounds Lymphadenopathy Chronic cholecystitis Acalculous cholecystitis Abdominal pain Surgical History (Updated 08/22/23 @ 09:55 by Galo Ortez, DO) History of laparoscopic cholecystectomy 08/01/23 Dr Ortez Data Anesthesia Cardiac Studies: No Data to Display
--- NOTE | 2023-08-30 09:55 | PM.HP ---
Providers/Chief Complaint Primary Care Provider: Galo Ortez DO Chief Complaint: Z12.11 History of Present Illness Dionne Rocha is a 48 year old female Review of Systems General: Reports: 10 or more systems reviewed and unremarkable except in HPI and below Medications/Allergies Home Medications Medication Instructions Recorded Confirmed Last Taken Type No Known Home Medications 08/20/23 08/28/23 Unknown History Allergies Allergy/AdvReac Type Severity Reaction Status Date / Time banana Allergy blisters Verified 08/30/23 08:51 in mouth Bleach (Sodium Hypochlorite) Allergy Blisters Verified 08/30/23 08:51 latex Allergy ALGY-Rash Verified 08/30/23 08:51 pecan nut Allergy ALGY-Rash Verified 08/30/23 08:51 walnut Allergy ALGY-Anaphy Verified 08/30/23 08:51 laxis cyclines Allergy ADR-Itching Uncoded 08/30/23 08:51 PFSH Acute PFSH: Medical History Tularemia, ulceroglandular Treatment at [facility] Malnutrition 07/14/2023 albumin 2.6 Abnormal weight loss 08/2022 weight was ~265 pounds and 07/17/2023 181 pounds Lymphadenopathy Chronic cholecystitis Acalculous cholecystitis Abdominal pain Surgical History (Updated 08/22/23 @ 09:55 by Galo Ortez DO) History of laparoscopic cholecystectomy 08/01/23 Dr Ortez Vitals/I&O/Wt Last Vital Signs Temp 97.2 F L 08/30/23 08:55 Pulse 67 08/30/23 08:55 Resp 18 08/30/23 08:55 BP 122/85 08/30/23 08:55 Pulse Ox 98 08/30/23 08:55 O2 Del Method Room Air 08/30/23 08:55 Weight last 48 hrs Weight 165 lb A&P Assessment and plan (1) Colon cancer screening: Plan Colonoscopy Attestations Medical Necessity Statement*: Home Coding Level of Care Code Acute Code for Chg Fwd Diagnoses Colon cancer screening Z12.11
[2023-08-30 10:21] VITALS: BP 97/62; PULSE 83; RESP 18; TEMP 36.5; O2SAT 95
[2023-08-30 10:38] VITALS: BP 108/8; PULSE 72; RESP 18; O2SAT 97
== END 2023-08-30 11:00 | disposition home or self-care (01) ==
PROVIDERS: Student in an Organized Health Care Education/Training Program; PCP Surgery; Visit Provider Surgery
PROC: 0DJD8ZZ Inspection of Lower Intestinal Tract, Via Natural or Artificial Opening Endoscopic (ICD-10-PCS; CPT 45378; principal; 2023-08-30 09:30)
DX: Z12.11 Encounter for screening for malignant neoplasm of colon (principal); K57.30 Diverticulosis of large intestine without perforation or abscess without bleeding
CPT/HCPCS: 45378; 84703; J2704; J7030

== ENCOUNTER → 2023-11-08 12:01 | Outpatient (BNVA) | payer OTHER, SELFPAY | PROVIDERS: PCP Surgery; Visit Provider Emergency Medicine | DX: Z34.90 Encounter for supervision of normal pregnancy, unspecified, unspecified trimester (principal); N92.6 Irregular menstruation, unspecified; Z3A.00 Weeks of gestation of pregnancy not specified | CPT/HCPCS: 81025; 84702 ==

== ENCOUNTER → 2023-11-15 14:14 | Outpatient (BNVA) | payer OTHER, SELFPAY | PROVIDERS: PCP Surgery; Visit Provider Family Medicine | DX: R74.8 Abnormal levels of other serum enzymes (principal) | CPT/HCPCS: 80053; 82977 ==

== ENCOUNTER 2023-11-21 10:34 | Outpatient (CLI) | payer OTHER, SELFPAY ==
--- NOTE | 2023-11-21 11:00 | MM_ITS ---
WS: [id number] BILATERAL SCREENING DIGITAL TOMOSYNTHESIS MAMMOGRAM WITH CAD HISTORY: screening MMG COMPARISON: 05/02/2021 Bilateral CC and MLO views with tomosynthesis and synthetic mammography submitted. Computer aided det ection analyzed. Breast composition: There are scattered areas of fibroglandular density. No suspicious masses, microc alcifications or architectural distortion. IMPRESSION: MM/[place] [id number] BI-RADS: 1-Negative FOLLOW UP: 1 Year Follow-up
== END 2023-11-21 10:35 | disposition home or self-care (01) ==
LOC: RAD 10:35
PROVIDERS: PCP Surgery; Visit Provider Family Medicine
DX: Z12.31 Encounter for screening mammogram for malignant neoplasm of breast
CPT/HCPCS: 77063; 77067

== ENCOUNTER 2023-11-28 11:07 | Outpatient (CLI) | payer OTHER, SELFPAY ==
--- NOTE | 2023-11-28 11:45 | US_ITS ---
WS: [id number] US transvaginal [id number] HISTORY: uterine pain COMPARISON: None available. Uterus: 7.1 cm x 3.8 cm x 3.8 cm. Normal size anteverted uterus. No fibroid or mass. Mild heterogeneity within the central myometrium. Endometrium: 0.4 cm. Loss of normal junctional zone along the posterior mid endometrium. This is also the area of mild heterogeneity within the myometrium. This may be an area of adenomyosis. No cystic changes are identified. No discrete mass or fibroid. Right ovary: Not identified. No adnexal mass. Left ovary: 2.8 cm x 2.8 cm x 1.5 cm. Normal size and vascularity, no cystic or solid masses. No free fluid in the cul-de-sac. IMPRESSION: 1. Mild uterine heterogeneity with loss of the normal endomyometrial junction. This can be seen with adenomyosis. No fibroid identified. 2. RIGHT ovary is not identified. 3. LEFT ovary is normal.
== END 2023-11-28 11:08 | disposition home or self-care (01) ==
PROVIDERS: PCP Surgery; Visit Provider Family Medicine
DX: N94.89 Other specified conditions associated with female genital organs and menstrual cycle (principal)
CPT/HCPCS: 76830

== ENCOUNTER 2023-11-29 07:59 | Outpatient (CLI) | payer OTHER, SELFPAY ==
--- NOTE | 2023-11-29 08:00 | CT_ITS ---
WS: [id number] CT chest wo con [id number] HISTORY: pulmonary nodule TECHNIQUE: Axial imaging performed through the thorax. Coronal and sagittal reformats are submitted. All CT scans at [facility] use at least one of these dose optimization techniques: automated exposure control; mA and/or kV adjustment per patient size (includes targeted exams where dose is mat ched to clinical indication); or iterative reconstruction. CONTRAST: None DLP: 266.71 mGy.cm COMPARISON: Neck CT 02/17/2023, lung bases 06/30/2023, no prior chest CT for comparison. Lungs and central airway: There are 3 micronodules identified. 2.5 mm nodule RIGHT upper lobe. 2 mm n odule LEFT upper lobe and LEFT lower lobe. No mass. Lungs are slightly hyperinflated. No interstitial thickening. No pneumonia. Pleura: Normal. No pleural effusion. Heart and pericardium: Normal size heart with no pericardial effusion. Mediastinum and sam: No mediastinum or hilar adenopathy. Vessels: Normal size aortic and pulmonary artery. No coronary artery calcifications. Chest wall and lower neck: No soft tissue masses. Upper abdomen: Prior cholecystectomy. No adrenal mass. Osseous structures: Mild thoracic spondylosis. No destructive bone lesions. IMPRESSION: 1. Bilateral pulmonary micronodules. Largest nodule is 2.5 mm in the RIGHT upper lobe. No additional imaging necessary. Indeterminate solid pulmonary nodule measuring 2.5 mm. In a low-risk patient with a solid nodule <6 m m, recommend no follow-up. In a high-risk patient, CT at 12 months is optional with stronger consider ation if there is suspicious nodule morphology and/or upper lobe location. 2. No pulmonary mass. No pneumonia. 3. Prior cholecystectomy.
== END 2023-11-29 08:00 | disposition home or self-care (01) ==
LOC: RAD 07:59
PROVIDERS: PCP Surgery; Visit Provider Family Medicine
DX: R91.8 Other nonspecific abnormal finding of lung field (principal)
CPT/HCPCS: 71250

== ENCOUNTER 2024-09-28 10:15 | Emergency (ER) | payer OTHER, SELFPAY ==
[2024-09-28 11:13] VITALS: BP 146/99; PULSE 70; TEMP 36.9; O2SAT 100; BMI 29.8
--- NOTE | 2024-09-28 11:21 | XR_ITS ---
WS: [id number] LEFT FOOT: 3 VIEW(S) TECHNIQUE: AP, oblique and lateral. HISTORY: fall COMPARISON: None available. No acute fracture or dislocation. Normal tarsal/metatarsal alignment. Large amount of soft tissue edema along the lateral malleolus and lateral foot. XR/XR foot LT min 3V* [id number] IMPRESSION: 1. No acute fracture identified. 2. There is significant edema along the lateral malleolus and foot. If there i s continued concern for fracture consider CT evaluation of the LEFT ankle.
--- NOTE | 2024-09-28 11:21 | XR_ITS ---
WS: [id number] LEFT ANKLE: 3 VIEW(S) TECHNIQUE: AP, oblique(s) and lateral. HISTORY: injury COMPARISON: None available. Normal alignment at the ankle joint. No widening of the syndesmosis. There is a very tiny osseous or calcific density along the lateral talus. This could be a very tiny avulsion fracture from the talus or sustentaculum nader. It does appear well-circumscribed and may not be acute. There is adjacent soft tissue edema. No joint effusion. No significant degenerative changes at the joint spaces. XR/XR ankle LT min 3V* [id number] IMPRESSION: 1. Very tiny avulsion fracture versus calcification which is age-indeterminate from the lateral talus or sustentaculum nader. This is well-circumscribed and m ay not be related to the recent injury. 2. Otherwise no fracture. 3. Moderate soft tissue hematoma over the lateral malleolus.
--- NOTE | 2024-09-28 11:24 | ED_ITS ---
HPI - Extremity Problem General: Chief complaint: Extremity Injury, Lower Stated complaint: left ankle swollen Time Seen by Provider: 09/28/24 11:21 Source: patient Mode of arrival: ambulatory Limitations: no limitations History of Present Illness: 49-year-old female who states this evitani ng she twisted her left ankle she states she has had pain and swelling in that left ankle since then. She rates the pain a 7 out of 10 is in the lateral portion of her ankle states she is not able to bear weight. Denies any knee pain Associated symptoms: Deny chest pain, fever(s) or rash Related Data Previous Rx's ?Medication ?Instructions ?Recorded hydrocodone 5 mg-acetaminophen 325 1 tab PO Q6H PRN pa in #14 tabs 09/28/24 mg tablet naproxen 500 mg tablet (Naprosyn) 500 mg PO BID PRN pa in #20 tabs 09/28/24 Allergies Allergy/AdvReac Type Severity Reaction Status Date / Time banana Allergy blisters Verified 09/28/24 11:19 in mouth Bleach (Sodium Hypochlorite) Allergy Blisters Verified 09/28/24 11:19 doxycycline Allergy ADR-Itching Verified 09/28/24 11:19 latex Allergy ALGY-Rash Verified 09/28/24 11:19 pecan nut Allergy ALGY-Rash Verified 09/28/24 11:19 walnut Allergy ALGY-Anaphy Verified 09/28/24 11:19 laxis Review of Systems Const: Denies: fever(s), chills, body aches or change in appetite ENMT: Denies: throat pain or dental pain Card: Denies: chest pain Resp: Denies: dyspnea GI: Denies: abdominal pain, nausea, vomiting or diarrhea Musc: Reports: extremity pain; Denies: neck pain or back pain Skin/Breast: Denies: rash Neuro: Denies: headache(s) PFSH ED PFSH: Medical History Pulmonary nodule History of miscarriage Tularemia, ulceroglandular Treatment at [facility] Malnutrition 07/14/2023 albumin 2.6 Abnormal weight loss 08/2022 weight was ~265 pounds and 07/17/2023 181 pounds Lymphadenopathy Chronic cholecystitis Acalculous cholecystitis Abdominal pain Surgical History History of laparoscopic cholecystectomy 08/01/23 Dr Ortez Family History (Updated 11/15/23 @ 13:56 by Bhavin Salmeron MD) Other ALS (amyotrophic lateral sclerosis) Bone cancer Breast cancer Colon cancer Social History Smoking and tobacco/nicotine status: never used tobacco/nicotine Alcohol intake: never Adopted: No service: No Current occupational exposures/hazards: No Current gender identity: Female Female Reproductive History: Para: 21 Physical Exam Const: COMMON NORMALS: no acute distress, patient oriented x3 and healthy appearing HENMT: COMMON NORMALS: normocephalic and atraumatic HEAD & SCALP: normocephalic and atraumatic Neck/C-Spine: COMMON NORMALS: full ROM and supple Chest: COMMONS NORMALS: normal inspection of the chest Resp: COMMON NORMALS: normal respiratory effort Cardio: COMMON NORMALS: regular rate RATE: regular rate Extremity: COMMON NORMALS: full ROM NARRATIVE EXTREMITY EXAM: Swelling tenderness noted to left lateral ankle Neuro: COMMON NORMALS: patient oriented x3, moves all extremities and no focal motor deficits Psych: COMMON NORMALS: mental status grossly normal, Normal thought process present and cooperative THOUGHT PROCESS: Normal thought process present Skin: COMMON NORMALS: no rashes or lesions noted and no wounds GENERAL SKIN EXAM: no rashes or lesions noted Course Vital Signs: Vital signs: Vital Signs Temperature 98.5 F 09/28/24 11:13 Pulse Rate 70 09/28/24 11:13 Blood Pressure 146/99 09/28/24 11:13 Pulse Oximetry 100 09/28/24 11:13 Oxygen Delivery Me thod Room Air 09/28/24 11:13 MDM - Extremity (Nontraumatic) Medical Decision Making Patient presents for left ankle sprain imaging shows no fractures we will get her follow-up with podiatry she is to be nonweightbearing did place her in a splint. Medical Records I reviewed the patient's medical records. All radiology interpretation(s) finalized by discharge ED provider radiology interpretation(s): xr L ankle: no acute fx Discharge Plan Discharge Patient Disposition: Home Clinical Impression: Ankle sprain and strain Condition: Stable Prescriptions: New hydrocodone-acetaminophen 5-325 mg tablet 1 tab PO Q6H PRN (Reason: pain) Qty: 14 0RF naproxen [Naprosyn] 500 mg tablet 500 mg PO BID PRN (Reason: pain) Qty: 20 0RF Discharge Orders: Discharge ED (Routine); Ordered 09/28/24 Ordered By: Gunner Perez Referrals: Galo Ortez DO [Primary Care Provider] - Keshawn Becerril DPM [Physician] - 4-7 days Discharge Diet: Advance as tolerated Discharge Activity: Limit activity as instructed and Use walker/crutches as instructed Patient Instructions: Opioid Safety, Pain Management Print Language: Italian Coding Level of Care Code ED Keycase Assembler for Dwain Rosales
[2024-09-28 11:51] VITALS: PULSE 81; O2SAT 99
--- NOTE | 2024-10-01 07:32 | DCPLANNER ---
messaged podiatry for er f/u
== END 2024-09-28 11:52 | disposition home or self-care (01) ==
PROVIDERS: Emergency Provider Emergency Medicine; PCP Surgery
DX: S93.402A Sprain of unspecified ligament of left ankle, initial encounter (principal); X58.XXXA Exposure to other specified factors, initial encounter
CPT/HCPCS: 73610; 73630; 99283; E0114

== ENCOUNTER → 2024-10-02 14:11 | Outpatient (BNVA) | payer OTHER, SELFPAY | PROVIDERS: PCP Surgery; Visit Provider Podiatrist Foot & Ankle Surgery | DX: M93.272 Osteochondritis dissecans, left ankle and joints of left foot (principal); S99.912A Unspecified injury of left ankle, initial encounter; S99.922A Unspecified injury of left foot, initial encounter; X50.9XXA Other and unspecified overexertion or strenuous movements or postures, initial encounter | CPT/HCPCS: 99204 ==

== ENCOUNTER 2024-10-08 09:27 | Outpatient (CLI) | payer OTHER, SELFPAY ==
--- NOTE | 2024-10-08 09:45 | MR_ITS ---
WS: [email or web address] EXAMINATION: MR ankle LT wo con* [id number] ORDER DATE: 10/08/2024 9:53 AM COMPARISON: None. HISTORY: OCD to left ankle, eval ligaments, tendons CONTRAST: None. TECHNIQUE: Axial proton density fat sat, axial T1, sagittal proton density, sagittal STIR, coronal T2 fat sat, and coronal T1 sequences performed FINDINGS: High-grade tears involving the ATF and calcaneofibular ligaments. Small amount of edema involving the deltoid ligament compatible with ligamentous injury which appears grossly intact. Posterior talofibular ligament appears intact. Tibiofibular ligaments appear intact. Normal tibiotalar joint. Normal tibial plafond. Contusion involving the dorsal medial talus. Small amount of underlying edema in the medial malleolus. Trace edema in the lateral malleolus. Diffuse soft tissue edema about the ankle worse about the lateral malleolus and lateral aspect of the ankle. Small joint effusion. Normal bone marrow signal in the calcaneus and talar neck. Distal Achilles appears intact. Tenosynovitis involving the peroneal longus and brevis tendons. Tenosynovitis involving the flexor compartment tendons which appear intact. Normal extensor compartment tendons. Cuboid is normal in appearance. Normal visualized cuneiforms and navicular. Mild degenerative changes at the talonavicular art iculation. Base of the fifth metatarsal appears normal. MR/MR ankle LT wo con* [id number] IMPRESSION: 1. High-grade complete tear of the ATF and calcaneofibular ligaments with flui d and edema in the anterolateral gutter. 2. Ligamentous injury involving the deltoid ligament with increased signal. 3. Contusion involving the dorsal medial talus with underlying contusion in th e medial malleolus. 4. Tenosynovitis involving the peroneal tendons and flexor compartment tendons . 5. Suspected small avulsion along the lateral talus better appreciated on the radiographs. 6. No other acute findings.
== END 2024-10-08 09:28 | disposition home or self-care (01) ==
LOC: RAD 09:27
PROVIDERS: PCP Family Medicine; Visit Provider Podiatrist Foot & Ankle Surgery
DX: M93.272 Osteochondritis dissecans, left ankle and joints of left foot (principal); M25.572 Pain in left ankle and joints of left foot; S93.492A Sprain of other ligament of left ankle, initial encounter; S93.412A Sprain of calcaneofibular ligament of left ankle, initial encounter; S90.02XA Contusion of left ankle, initial encounter; X58.XXXA Exposure to other specified factors, initial encounter; R93.6 Abnormal findings on diagnostic imaging of limbs; M65.872 Other synovitis and tenosynovitis, left ankle and foot; M19.072 Primary osteoarthritis, left ankle and foot
CPT/HCPCS: 73721

== ENCOUNTER → 2024-10-19 14:31 | Outpatient (BNVA) | payer OTHER, SELFPAY | PROVIDERS: PCP Family Medicine; Visit Provider Podiatrist Foot & Ankle Surgery | DX: M93.272 Osteochondritis dissecans, left ankle and joints of left foot (principal); M25.572 Pain in left ankle and joints of left foot; S99.912D Unspecified injury of left ankle, subsequent encounter; S99.922D Unspecified injury of left foot, subsequent encounter; X58.XXXD Exposure to other specified factors, subsequent encounter | CPT/HCPCS: 73610; 99213 ==

== ENCOUNTER 2024-11-03 09:58 | Outpatient (RCR) | payer OTHER, SELFPAY | END 2024-11-16 23:59 | disposition home or self-care (01) | LOC: SPT 09:58 | PROVIDERS: Visit Provider Podiatrist Foot & Ankle Surgery | DX: S93.402D Sprain of unspecified ligament of left ankle, subsequent encounter (principal); X58.XXXD Exposure to other specified factors, subsequent encounter | CPT/HCPCS: 97110; 97161 ==

== ENCOUNTER 2024-11-17 06:30 | Outpatient (RCR) | payer OTHER, SELFPAY | END 2024-11-23 14:32 | disposition home or self-care (01) | LOC: SPT 06:30 | PROVIDERS: PCP Family Medicine; Visit Provider Podiatrist Foot & Ankle Surgery | DX: S93.402D Sprain of unspecified ligament of left ankle, subsequent encounter (principal); X58.XXXD Exposure to other specified factors, subsequent encounter | CPT/HCPCS: 97110 ==

== ENCOUNTER → 2024-11-23 13:44 | Outpatient (BNVA) | payer OTHER, SELFPAY | PROVIDERS: PCP Family Medicine; Visit Provider Podiatrist Foot & Ankle Surgery | DX: M93.272 Osteochondritis dissecans, left ankle and joints of left foot (principal); S99.912D Unspecified injury of left ankle, subsequent encounter; S99.922D Unspecified injury of left foot, subsequent encounter; X58.XXXD Exposure to other specified factors, subsequent encounter | CPT/HCPCS: 99213 ==

== ENCOUNTER 2025-06-13 13:29 | Emergency (ER) | payer OTHER, SELFPAY ==
[2025-06-13 14:08] VITALS: BP 142/84; PULSE 84; RESP 16; TEMP 37.2; O2SAT 100
--- NOTE | 2025-06-13 14:53 | ED_ITS ---
HPI - Dental/Oral General: Chief complaint: Dental/Oral Stated complaint: swelling, pain in rt jaw Time Seen by Provider: 06/13/25 14:47 Source: patient Mode of arrival: ambulatory Limitations: no limitations History of Present Illness: 49-year-old female states that she has h ad left lower dental pain over the last 3 days she states that she has had swelling to the left side of her jaw its increased. She has no trismus she denies any difficulty swallowing or breathing. She denies any fever she does have pain she rates a 6 out of 10. Related Data Previous Rx's ?Medication ?Instructions ?Recorded hydrocodone 5 mg-acetaminophen 325 1 tab PO Q6H PRN pa in #14 tabs 09/28/24 mg tablet naproxen 500 mg tablet (Naprosyn) 500 mg PO BID PRN pa in #20 tabs 09/28/24 ASO #1 ea 10/19/24 cephalexin 500 mg capsule 500 mg PO TID 7 days #21 cap s 06/13/25 hydrocodone 5 mg-acetaminophen 325 1 tab PO Q6H PRN pa in #14 tabs 06/13/25 mg tablet methocarbamol 750 mg tablet 750 mg PO Q6H PRN spasms # 20 tabs 06/13/25 Allergies Allergy/AdvReac Type Severity Reaction Status Date / Time banana Allergy blisters Verified 11/23/24 14:15 in mouth Bleach (Sodium Hypochlorite) Allergy Blisters Verified 11/23/24 14:15 doxycycline Allergy ADR-Itching Verified 11/23/24 14:15 latex Allergy ALGY-Rash Verified 11/23/24 14:15 pecan nut Allergy ALGY-Rash Verified 11/23/24 14:15 walnut Allergy ALGY-Anaphy Verified 11/23/24 14:15 laxis Review of Systems ENMT: Reports: dental pain PFSH ED PFSH: Medical History Pulmonary nodule History of miscarriage Tularemia, ulceroglandular Treatment at [facility] Malnutrition 07/14/2023 albumin 2.6 Abnormal weight loss 08/2022 weight was ~265 pounds and 07/17/2023 181 pounds Lymphadenopathy Chronic cholecystitis Acalculous cholecystitis Abdominal pain Surgical History History of laparoscopic cholecystectomy 08/01/23 Dr Ortez Family History Other ALS (amyotrophic lateral sclerosis) Bone cancer Breast cancer Colon cancer Social History Smoking and tobacco/nicotine status: never used tobacco/nicotine Alcohol intake: never Adopted: No service: No Current occupational exposures/hazards: No Current gender identity: Female Female Reproductive History: Para: 21 Physical Exam Const: COMMON NORMALS: patient oriented x3 and healthy appearing HENMT: COMMON NORMALS: normocephalic and atraumatic HEAD & SCALP: normocephalic and atraumatic OTHER: Very poor dentition tenderness over left lower molar no trismus no abscess does have some swelling over the left jaw no definite abscess no swelling down into the neck handling secretions well Eye: COMMON NORMALS: Equal, round and reactive pupils present and EOMs intact bilaterally PUPIL: Yes Equal, round and reactive pupils present Neck/C-Spine: COMMON NORMALS: full ROM and supple Chest: COMMONS NORMALS: normal inspection of the chest Resp: COMMON NORMALS: normal respiratory effort Cardio: COMMON NORMALS: regular rate RATE: regular rate Extremity: COMMON NORMALS: normal to inspection and full ROM Neuro: COMMON NORMALS: patient oriented x3, moves all extremities and no focal motor deficits Psych: COMMON NORMALS: mental status grossly normal, Normal thought process present and cooperative THOUGHT PROCESS: Normal thought process present Skin: COMMON NORMALS: no rashes or lesions noted and no wounds GENERAL SKIN EXAM: no rashes or lesions noted Course Vital Signs: Vital signs: Vital Signs Temperature 99.0 F 06/13/25 14:08 Pulse Rate 84 06/13/25 14:08 Respiratory Rate 16 06/13/25 14:08 Blood Pressure 142/84 06/13/25 14:08 Pulse Oximetry 100 06/13/25 14:08 Oxygen Delivery Me thod Room Air 06/13/25 14:08 MDM - Dental/Oral Medical Decision Making Patient presents here with dental pain no trismus or definite abscess does have some jaw swelling likely from a dental infection no signs of abscess to the neck no signs of airway involvement she is handling her secretions well here. Will start her on Keflex and Flagyl did give her Rocephin IM shot here along with Flagyl. Will prescribe her [place] for pain she is to follow-up with dentist next week she is return if worsening she understands agrees to plan. Medical Records I reviewed the patient's medical records. No radiology studies performed this visit Discharge Plan Discharge Patient Disposition: Home Clinical Impression: Pain, dental Condition: Stable Prescriptions: New hydrocodone-acetaminophen 5-325 mg tablet 1 tab PO Q6H PRN (Reason: pain) Qty: 14 0RF methocarbamol 750 mg tablet 750 mg PO Q6H PRN (Reason: spasms) Qty: 20 0RF cephalexin 500 mg capsule 500 mg PO TID 7 Days Qty: 21 0RF No Action (DME) ASO See Rx Instructions .Route .MEDSUPPLY Qty: 1 0RF Rx Instructions: As directed hydrocodone-acetaminophen 5-325 mg tablet 1 tab PO Q6H PRN (Reason: pain) Qty: 14 0RF naproxen [Naprosyn] 500 mg tablet 500 mg PO BID PRN (Reason: pain) Qty: 20 0RF Discharge Orders: Discharge ED (Routine); Ordered 06/13/25 Ordered By: Gunner Perez Referrals: Bhavin Salmeron MD [Primary Care Provider, Family Practice] Discharge Diet: Advance as tolerated Discharge Activity: Resume usual activity Patient Instructions: Toothache (ED) Print Language: Chilean Coding Level of Care Code ED Claims Technician for Dwain Rosales
[2025-06-13] MEDS: HYDROcodone-acetaminophen 5-325 mg Tablet 1 TAB PO (15:02)
[2025-06-13] MEDS: cefTRIAXone 1,000 MG in water for injection-sterile 2.1 ML 2 MG IM (15:02)
== END 2025-06-13 15:19 | disposition home or self-care (01) ==
PROVIDERS: Emergency Provider Emergency Medicine; PCP Family Medicine
DX: K08.89 Other specified disorders of teeth and supporting structures (principal)
CPT/HCPCS: 96372; 99284; J0696; J9999